=== PATIENT | female | born 1940 | race Caucasian/White ===

== ENCOUNTER 2018-07-16 19:21 | Observation (INO) ==
[2018-07-16] MEDS ORDERED: DILTIAZEM HCL 5 MG/ML VIAL IV ONE (19:32)
[2018-07-16 19:48] LABS: Hematocrit 39.4 % (37.0-47.0); Hemoglobin 13.3 gm/dL (12.5-16.0); Mean Cell Volume 92.7 fl (78-100); Mean Corpuscular Hemoglobin 31.3 pg (27-31); Mean Corpuscular Hgb Conc 33.8 g/dl (32-36); Mean Platelet Volume 9.9 fl (8-12.5); Neutrophil # 5.3 K/mm3 (1.3-6.0); Neutrophil % 63.3 % (42-75.0); Platelet Count 179 K/mm3 (150-450); Red Blood Count 4.25 M/mm3 (4.2-5.4); Red Cell Distribution Width 12.8 % (11.5-14.0); White Blood Count 8.4 K/mm3 (4.0-10.5)
--- NOTE | 2018-07-16 19:49 | ERNOTE ---
Dizziness ER Record Date of Service: 07/16/18 Presenting Symptoms: dizziness, weakness Time Seen by Provider: 07/16/18 19:29 Source: patient Exam Limitations: no limitations Immunizations: IMMUNIZATION HX Immunizations Up to Date Yes History of Influenza Vaccine Yes Allergies/Adverse Reactions: Allergies Allergy/AdvReac Type Severity Reaction Status Date / Time methylprednisolone Allergy Intermediate SWELLED UP Verified 07/16/18 19:28 ALL OVER, GAINED 20 LBS SUDDENLY Sulfa (Sulfonamide AdvReac Mild RASH Verified 07/16/18 19:28 Antibiotics) Home Medications: HOME MEDICATIONS Aspirin [Aspirin Enteric Coated] 81 mg PO DAILY 07/22/13 [Last Taken Unknown] Calcium Carbonate [Oyster Shell Calcium] 500 mg PO DAILY 07/22/13 [Last Taken Unknown] Multivitamins [Multivitamin Kacie] 1 cap PO DAILY 07/22/13 [Last Taken Unknown] Nitroglycerin [Nitrostat] 0.4 mg SL PRN PRN 07/22/13 [Last Taken Unknown] [place]-3 Fatty Acids/Fish Oil [Fish Oil 1,000 mg Softgel] 1 ea PO DAILY 07/22/13 [Last Taken Unknown] Ranitidine HCl 150 mg PO BID PRN 07/22/13 [Last Taken Unknown] atorvastatin 20 mg tablet 20 mg PO DAILY #90 tab 04/12/18 [Last Taken Unknown] isosorbide mononitrate ER 30 mg tablet,extended release 24 hr 30 mg PO BID #180 tab 04/12/18 [Last Taken Unknown] metoprolol succinate ER 100 mg tablet,extended release 24 hr 100 mg PO DAILY #90 tab 04/12/18 [Last Taken Unknown] ciprofloxacin 500 mg tablet 500 mg PO BID #20 tab 06/29/18 [Last Taken Unknown] - History of Present Illness Narrative: patient present with findings at home of difficulty walking and slurred speech, symptoms have resolved upon arrival Timing and Duration: sudden onset, better Review of Systems - Review of Systems Constitutional: Present: See HPI, weakness, fatigue, malaise EYE: Present: no symptoms reported ENT: Present: no symptoms reported Respiratory: Present: no symptoms reported Cardiology: Present: palpitations Gastrointestinal/Abdominal: Present: no symptoms reported Genitourinary: Present: no symptoms reported Musculoskeletal: Present: no symptoms reported Skin: Present: no symptoms reported Neurological: Present: headache, dizziness/light-headedness, weakness Endocrine: Present: no symptoms reported Hematologic/Lymphatic: Present: no symptoms reported Psych: Present: no symptoms reported All Other Systems: All systems neg except as marked Medical History (Last Reviewed 07/16/18 @ 19:28 by Dinah Bo RN) CAD (coronary artery disease) Onset Date: ~2011 Hyperlipidemia Onset Date: Unknown Hypertension Onset Date: Unknown Dupuytren contracture Onset Date: Unknown both hands History of myocardial infarction Onset Date: Unknown Surgical History: Surgical History (Last Reviewed 07/16/18 @ 19:28 by Dinah Bo RN) History of angioplasty Onset Date: ~1997 History of cataract surgery Onset Date: ~2013 bilateral History of colonoscopy Onset Date: ~2004 History of laparoscopic cholecystectomy Onset Date: ~2009 Hx of appendectomy Onset Date: ~2009 Family History: Family History (Last Reviewed 07/16/18 @ 19:28 by Dinah Bo RN) Father Heart disease Mother Heart disease Social History: Preferred Language Bhutanese Do you have any mandaen or No cultural preference? Smoking Status Former smoker Alcohol Use none Drug Use none (Last Updated 06/29/18 @ 15:31 by La Nena Mantilla MD) No Social History Section defined Physical Exam - Physical Exam General Appearance: Present: mild distress, anxious Head Exam: Present: normal inspection, no evidence of injury Eye Exam: Normal inspection: bilateral, PERRL: bilateral, EOMI: bilateral Progress - Vital Signs Patient's Vital Signs:: I have reviewed the patient's vital signs. Vital Signs: Vital Signs 07/16/18 19:25 07/16/18 19:35 Temperature 36.7 C Pulse Rate 152 H 134 H Respiratory Rate 25 H Blood Pressure 197/113 H 197/113 H O2 Sat by Pulse Oximetry 95 - EKG EKG #1 EKG: atrial fibrillation - Progress/Reassessment Chief Complaint: Dizziness - Transfer of Care Physician Sign Out: Thor Nava Receiving Physician: Chato Collins Expected Disposition: Admit Plan - Plan Plan: to admit Departure Clinical Impression: TIA (transient ischemic attack), Atrial fibrillation - Departure Disposition: Still a patient Condition: Serious Referrals: La Nena Mantilla MD [Primary Care Provider] -
[2018-07-16 20:04] LABS: Albumin * 3.5 gm/dl (3.4-5.0); Anion Gap 16.8 mmol/L (6.8-13.8); BUN/Creatinine Ratio 16.8 (9.0-21.6); Bilirubin, Total 0.4 mg/dL (0.0-1.1); Calcium * 8.9 mg/dL (7.9-10.9); Potassium 3.8 mmol/L (3.4-4.6); Total Protein 6.8 gm/dL (6.2-8.2)
[2018-07-16 20:04] LABS: Urine Bilirubin Negative (NEGATIVE); Urine Ketone Negative (NEGATIVE); Urine Nitrite Negative (NEGATIVE); Urine Protein 15 mg/dL (NEGATIVE); Urine Specific Gravity <=1.005 SP.GR. (1.005-1.010); Urine Urobilinogen Normal (NORMAL)
[2018-07-16 20:13] LABS: Urine Blood 5 /ul (NEGATIVE); Urine Color Yellow
[2018-07-16 20:14] LABS: Urine Appearance Clear (CLEAR); Urine Bacteria None Seen; Urine RBC 0-5 /hpf (0-5); Urine WBC 0-5 /hpf (0-5)
[2018-07-16] MEDS ORDERED: DILTIAZEM HCL 125 MG in DEXTROSE 5 % IN WATER 100 ML IV PRN ×2 (20:26)
[2018-07-16 20:27] LABS: Cocaine Ur Negative (NEGATIVE); Urine Barbiturate Negative (NEGATIVE); Urine Benzodiazepines Negative (NEGATIVE); Urine Opiates Negative (NEGATIVE); Urine PCP Negative (NEGATIVE); Urine THC Negative (NEGATIVE)
--- NOTE | 2018-07-16 20:42 | ERNOTE ---
Chest Pain/Cardiac HPI Chief Complaint: Dizziness Time Seen by Provider: 07/16/18 19:29 Source: patient Exam Limitations: no limitations Immunizations: IMMUNIZATION HX Immunizations Up to Date Yes History of Influenza Vaccine Yes Allergies/Adverse Reactions: Allergies methylprednisolone Allergy (Intermediate, Verified 07/16/18 19:28) SWELLED UP ALL OVER, GAINED 20 LBS SUDDENLY Sulfa (Sulfonamide Antibiotics) Adverse Reaction (Mild, Verified 07/16/18 19:28) RASH Home Medications: HOME MEDICATIONS Aspirin [Aspirin Enteric Coated] 81 mg PO DAILY 07/22/13 [Last Taken Unknown] Calcium Carbonate [Oyster Shell Calcium] 500 mg PO DAILY 07/22/13 [Last Taken Unknown] Multivitamins [Multivitamin Kacie] 1 cap PO DAILY 07/22/13 [Last Taken Unknown] Nitroglycerin [Nitrostat] 0.4 mg SL PRN PRN 07/22/13 [Last Taken Unknown] [place]-3 Fatty Acids/Fish Oil [Fish Oil 1,000 mg Softgel] 1 ea PO DAILY 07/22/13 [Last Taken Unknown] Ranitidine HCl 150 mg PO BID PRN 07/22/13 [Last Taken Unknown] atorvastatin 20 mg tablet 20 mg PO DAILY #90 tab 04/12/18 [Last Taken Unknown] isosorbide mononitrate ER 30 mg tablet,extended release 24 hr 30 mg PO BID #180 tab 04/12/18 [Last Taken Unknown] metoprolol succinate ER 100 mg tablet,extended release 24 hr 100 mg PO DAILY #90 tab 04/12/18 [Last Taken Unknown] Lisinopril/Hydrochlorothiazide [Lisinopril-Hctz 20-12.5 mg Tab] 1 ea PO DAILY 07/16/18 [Last Taken Unknown] Narrative: Pt presented with dizziness and difficulty walking and speaking at home that resolved prior to arrival. She was found to be in A-fib with RVR. She was seen initially by Dr. Nava who gave her cardizem IV and her rate came down around 110-120, but blood pressure remained elevated in the 172/107 range. I assumed care of the patient at 20:00. Timing: resolved prior to arrival Severity/Quality: moderate Activities at Onset: rest Review of Systems - Review of Systems Constitutional: Present: recent illness - UTI 2 weeks ago. Absent: fever, chills EYE: Absent: vision changes ENT: Absent: nose congestion, nasal drainage Respiratory: Absent: shortness of breath, cough Cardiology: Present: palpitations. Absent: chest pain Gastrointestinal/Abdominal: Absent: nausea, vomiting Genitourinary: Absent: frequency, dysuria Musculoskeletal: Absent: back pain, muscle pain Skin: Absent: rash Neurological: Present: See HPI, dizziness/light-headedness, weakness, pre- existing deficit - difficulty finding words Endocrine: Absent: excessive sweating Hematologic/Lymphatic: Absent: easy bruising, easy bleeding Medical History (Last Reviewed 07/16/18 @ 21:21 by Chato Collins DO) CAD (coronary artery disease) Onset Date: ~2011 Hyperlipidemia Onset Date: Unknown Hypertension Onset Date: Unknown Dupuytren contracture Onset Date: Unknown both hands History of myocardial infarction Onset Date: Unknown Surgical History: Surgical History (Last Reviewed 07/16/18 @ 21:21 by Chato Collins DO) History of angioplasty Onset Date: ~1997 History of cataract surgery Onset Date: ~2013 bilateral History of colonoscopy Onset Date: ~2004 History of laparoscopic cholecystectomy Onset Date: ~2009 Hx of appendectomy Onset Date: ~2009 Family History: Family History (Last Reviewed 07/16/18 @ 21:21 by Chato Collins DO) Father Heart disease Mother Heart disease Social History: Preferred Language Mozambican Do you have any judaism or No cultural preference? Smoking Status Former smoker Alcohol Use none Drug Use none (Last Updated 06/29/18 @ 15:31 by La Nena Mantilla MD) No Social History Section defined Physical Exam - Physical Exam General Appearance: Present: wd/wn, alert, no apparent distress Head Exam: Present: normal inspection, no evidence of injury Eye Exam: Normal inspection: bilateral, PERRL: bilateral, EOMI: bilateral Ears, Nose, Throat: Present: normal ENT inspection Neck: Present: normal inspection, nontender, supple Respiratory: Present: no respiratory distress, no accessory muscle use, chest nontender, lungs clear Cardiovascular/Chest: Present: no murmur, tachycardia, irregularly irregular Gastrointestinal/Abdominal: Present: normal bowel sounds, nontender, nondistended, soft Extremity Exam: Present: normal inspection, normal range of motion, no edema Neurological Exam: Present: alert, oriented, normal mood/affect, no motor/senso ry deficits, stockfeed miller II-XII nml as tested Skin Exam: Present: normal color, warm/dry Lymphatic Exam: Present: no adenopathy Progress - Results and Orders Patient's Lab Results:: I have reviewed the patient's lab results. Results and Orders: Laboratory Tests 07/16/18 07/16/18 07/16/18 19:44 19:44 19:49 WBC 8.4 Hgb 13.3 Hct 39.4 Plt Count 179 Sodium 141 Potassium 3.8 Chloride 102 BUN 20 Creatinine 1.19 Random Glucose 101 Calcium 8.9 Total Bilirubin 0.4 AST 27 ALT 41 Alkaline Phosphatase 102 Troponin I Less than 0.017 Total Protein 6.8 Albumin 3.5 Urine Color Urine Appearance Urine pH Ur Specific [place] Urine Protein Urine Glucose (UA) Urine Ketones Urine Blood Urine Nitrate Urine Bilirubin Prot Sulfosalicylic Acd Urine Urobilinogen Ur Leukocyte Esterase Urine RBC Urine WBC Ur Epithelial Cells Urine Bacteria Urine Culture Comments Urine Opiates Screen Barbiturate Screen Ur Phencyclidine Scrn Urine Amphetamine U Benzodiazepines Scrn Urine Cocaine Screen Urine Marijuana (THC) 07/16/18 07/16/18 19:56 19:56 WBC Hgb Hct Plt Count Sodium Potassium Chloride BUN Creatinine Random Glucose Calcium Total Bilirubin AST ALT Alkaline Phosphatase Troponin I Total Protein Albumin Urine Color Yellow Urine Appearance Clear Urine pH 7.0 Ur Specific [place] <=1.005 Urine Protein 15 H Urine Glucose (UA) Negative Urine Ketones Negative Urine Blood 5 H Urine Nitrate Negative Urine Bilirubin Negative Prot Sulfosalicylic Acd Negative Urine Urobilinogen Normal Ur Leukocyte Esterase Negative Urine RBC 0-5 Urine WBC 0-5 Ur Epithelial Cells 0-5 Urine Bacteria None seen Urine Culture Comments No culture indicated Urine Opiates Screen Negative Barbiturate Screen Negative Ur Phencyclidine Scrn Negative Urine Amphetamine Negative U Benzodiazepines Scrn Negative Urine Cocaine Screen Negative Urine Marijuana (THC) Negative - Vital Signs Patient's Vital Signs:: I have reviewed the patient's vital signs. Vital Signs: Vital Signs 07/16/18 19:25 07/16/18 19:35 Temperature 36.7 C Pulse Rate 152 H 134 H Respiratory Rate 25 H Blood Pressure 197/113 H 197/113 H O2 Sat by Pulse Oximetry 95 - EKG EKG #1 EKG: atrial fibrillation - with RVR at 150, RBBB - incomplete, nonspecific ST T wave changes EKG read: Interp. by me - X-Ray X-Ray #1 X-Ray: chest Interpretation: Interp. by me X-ray Comments: increased vascularity throughout the lung ruano - CT/Ultrasound CT/Ultrasound Narrative: CT head without contrast: No acute intracranial abnormalities - Progress/Reassessment Chief Complaint: Dizziness Progress:: Unchanged Progress Note-Subjective: 07/16/18 21:[address] Garrido and he agrees to accept the patient for observation admission Departure Clinical Impression: TIA (transient ischemic attack) Atrial fibrillation Qualifiers: Atrial fibrillation type: paroxysmal Qualified Code(s): I48.0 - Paroxysmal atrial fibrillation - Departure Disposition: Still a patient Condition: Serious
[2018-07-16] MEDS ORDERED: ENOXAPARIN SODIUM 80 MG/0.8 ML DISP.SYRIN SC ONE (21:19)
[2018-07-16] MEDS ORDERED: ACETAMINOPHEN 500 MG TABLET PO PRN (23:23)
--- NOTE | 2018-07-16 23:23 | HP ---
Chief Complaint - Chief Complaint Date of Service: 07/16/18 Time of Service: 23:22 Chief Complaint: Altered mental status History of Present Illness: Scarlet is a 78 yo female who became confused, had dysarthria, and per had possible facial droop. Symptoms began to improve prior to to arrival in ER. There was no noticeable facial drop, but she did have some confusion and speech finding a little different than usual. In the ER she was found to have atrial fibrillation with RVR and placed on diltiazem drip to control heart rate. She denies any recent change in health, but does report a little more stress lately. She currently feels she is back to her usual although her reports she is having a little more difficulty than usual coming up with the words to say. Medical History (Last Reviewed 07/23/18 @ 09:38 by Julia Angelo) CAD (coronary artery disease) Onset Date: ~2011 Hyperlipidemia Onset Date: Unknown Hypertension Onset Date: Unknown Dupuytren contracture Onset Date: Unknown both hands History of myocardial infarction Onset Date: Unknown Surgical History: Surgical History (Last Reviewed 07/23/18 @ 09:38 by Julia Angelo) History of angioplasty Onset Date: ~1997 History of cataract surgery Onset Date: ~2013 bilateral History of colonoscopy Onset Date: ~2004 History of laparoscopic cholecystectomy Onset Date: ~2009 Hx of appendectomy Onset Date: ~2009 Family History: Family History (Last Reviewed 07/23/18 @ 09:38 by Julia Angelo) Father Heart disease Mother Heart disease Social History: Patient Lives/Resources Home Utilized Occupation Retired Preferred Language American Do you have any jain or Yes: Hinduism cultural preference? Smoking Status Former smoker Have you smoked in the past 12 No months Do you dip or chew tobacco No Alcohol Use none Drug Use none (Last Updated 06/29/18 @ 15:31 by La Nena Mantilla MD) No Social History Section defined Review Of Systems (GEN) - Review of Systems Generalized/Overall Review: Absent: Weakness, Chills, Fever EENTM: Present: No Symptoms Reported Respiratory: Absent: Cough, Shortness of Breath Cardiac: Absent: Chest Pain, Edema, Palpitations, Syncope Abdominal: Absent: Nausea, Vomiting Genitourinary: Present: No Symptoms Reported Musculoskeletal: Present: No Symptoms Reported Neurological: Absent: Headache, Tremors, Weakness Skin: Present: No Symptoms Reported Immunizations: IMMUNIZATION HX Immunizations Up to Date Yes History of Influenza Vaccine Yes Allergies/Adverse Reactions: Allergies Allergy/AdvReac Type Severity Reaction Status Date / Time methylprednisolone Allergy Intermediate SWELLED UP Verified 07/23/18 09:31 ALL OVER, GAINED 20 LBS SUDDENLY Sulfa (Sulfonamide AdvReac Mild RASH Verified 07/23/18 09:31 Antibiotics) Home Medications: HOME MEDICATIONS Aspirin [Aspirin Enteric Coated] 81 mg PO DAILY 07/22/13 [Last Taken Unknown] Calcium Carbonate [Oyster Shell Calcium] 500 mg PO DAILY 07/22/13 [Last Taken Unknown] Multivitamins [Multivitamin Kacie] 1 cap PO DAILY 07/22/13 [Last Taken Unknown] Nitroglycerin [Nitrostat] 0.4 mg SL PRN PRN 07/22/13 [Last Taken Unknown] [place]-3 Fatty Acids/Fish Oil [Fish Oil 1,000 mg Softgel] 1 ea PO DAILY 07/22/13 [Last Taken Unknown] Ranitidine HCl 150 mg PO BID PRN 07/22/13 [Last Taken Unknown] atorvastatin 20 mg tablet 20 mg PO DAILY #90 tab 04/12/18 [Last Taken Unknown] isosorbide mononitrate ER 30 mg tablet,extended release 24 hr 30 mg PO BID #180 tab 04/12/18 [Last Taken Unknown] Lisinopril/Hydrochlorothiazide [Lisinopril-Hctz 20-12.5 mg Tab] 1 ea PO DAILY 07/16/18 [Last Taken Unknown] Acetaminophen [Tylenol] 1,000 mg PO Q6H PRN tab 07/17/18 [Last Taken Unknown] Apixaban [Eliquis] 5 mg PO BID #60 tab 07/17/18 [Last Taken Unknown] Levothyroxine Sodium [Levoxyl] 100 mcg PO DAILY #30 tab 07/17/18 [Last Taken Unknown] Metoprolol Succinate [Toprol Xl] 150 mg PO DAILY #45 tab.er.24h 07/17/18 [Last Taken Unknown] Exam - Exam Vital Signs: Vital Signs - Last Taken Temp 36.7 C 07/16/18 19:25 Pulse 90 07/16/18 22:25 Resp 16 07/16/18 22:25 BP 154/90 H 07/16/18 22:25 Pulse Ox 95 07/16/18 22:25 Constitutional: Present: Alert, Oriented x3, Cooperative ENT Exam: Present: hearing grossly normal Eye Exam: bilateral eye: normal inspection Respiratory: Present: lungs clear, normal breath sounds Cardiovascular/Chest: Present: tachycardia, irregularly irregular Peripheral Pulses: radial (R): 2+, radial (L): 2+ Abdomen: Present: Normal bowel sounds, soft, nontender, nondistended Extremity: Present: normal inspection, normal capillary refill Skin Exam: Present: normal color, warm/dry, no cyanosis Appearance: Present: appropriate appearance, appropriate insight Eye contact: Present: cooperative, good eye contact, avoids eye contact, other - word finding slowed Thoughts: Present: normal thought pattern, no apparent hallucination Diagnostic Studies: Abnormal Lab Results 07/16/18 07/16/18 07/16/18 Range/Units 19:44 19:44 19:56 MCH 31.3 H (27-31) pg Monocytes % 9.6 H (0.0-9) % Anion Gap 16.8 H (6.8-13.8) mmol/L Est GFR (Non-Af Amer) 47 L D (60-130) mL/min Urine Protein 15 H (NEGATIVE) mg/dL Urine Blood 5 H (NEGATIVE) /ul Laboratory Results WBC 8.4 K/mm3 (4.0-10.5) 07/16/18 19:44 RBC 4.25 M/mm3 (4.2-5.4) 07/16/18 19:44 Hgb 13.3 gm/dL (12.5-16.0) 07/16/18 19:44 Hct 39.4 % (37.0-47.0) 07/16/18 19:44 MCV 92.7 fl (78-100) 07/16/18 19:44 MCH 31.3 pg (27-31) H 07/16/18 19:44 MCHC 33.8 g/dl (32-36) 07/16/18 19:44 RDW 12.8 % (11.5-14.0) 07/16/18 19:44 Plt Count 179 K/mm3 (150-450) 07/16/18 19:44 MPV 9.9 fl (8-12.5) 07/16/18 19:44 Immature Gran % (Auto) 0.40 % (0.001-0.429) 07/16/18 19:44 Immature Gran # (Auto) 0.03 K/mm3 (0.000-0.0310) 07/16/18 19:44 Neutrophils % 63.3 % (42-75.0) 07/16/18 19:44 Lymphocytes % 24.5 % (20-51) 07/16/18 19:44 Monocytes % 9.6 % (0.0-9) H 07/16/18 19:44 Eosinophils % 1.8 % (0.0-3.0) 07/16/18 19:44 Basophils % 0.4 % (0.0-1.0) 07/16/18 19:44 Nucleated RBC % 0.0 k/mm3 (0-1) 07/16/18 19:44 Neutrophils # 5.3 K/mm3 (1.3-6.0) 07/16/18 19:44 Lymphocytes # 2.05 k/mm3 (1.5-3.5) 07/16/18 19:44 Monocytes # 0.8 k/mm3 (0.0-1.0) 07/16/18 19:44 Eosinophils # 0.2 k/mm3 (0.0-0.7) 07/16/18 19:44 Absolute Basophils 0.0 k/mm3 (0.0-0.1) 07/16/18 19:44 Sodium 141 mmol/L (132-142) 07/16/18 19:44 Plasma Sodium 141 mmol/L (130-142) 07/16/18 19:44 Potassium 3.8 mmol/L (3.4-4.6) 07/16/18 19:44 Chloride 102 mmol/L (97-106) 07/16/18 19:44 Carbon Dioxide 26.0 mmol/L (24-32.6) 07/16/18 19:44 Anion Gap 16.8 mmol/L (6.8-13.8) H 07/16/18 19:44 BUN 20 mg/dL (3-23) 07/16/18 19:44 Creatinine 1.19 mg/dL (0.4-1.4) 07/16/18 19:44 Est GFR (Non-Af Amer) 47 mL/min (60-130) L D 07/16/18 19:44 BUN/Creatinine Ratio 16.8 (9.0-21.6) 07/16/18 19:44 Random Glucose 101 mg/dL (70-110) 07/16/18 19:44 Calcium 8.9 mg/dL (7.9-10.9) 07/16/18 19:44 Calcium Adj for Albumin 9.0 mg/dL (8.4-10.2) 07/16/18 19:44 Total Bilirubin 0.4 mg/dL (0.0-1.1) 07/16/18 19:44 AST 27 U/L (0-48) 07/16/18 19:44 ALT 41 U/L (19-67) 07/16/18 19:44 Alkaline Phosphatase 102 U/L (50-170) 07/16/18 19:44 Troponin I Less than 0.017 ng/mL (0.00-0.10) 07/16/18 19:49 Total Protein 6.8 gm/dL (6.2-8.2) 07/16/18 19:44 Albumin 3.5 gm/dl (3.4-5.0) 07/16/18 19:44 Urine Color Yellow 07/16/18 19:56 Urine Appearance Clear (CLEAR) 07/16/18 19:56 Urine pH 7.0 pH (5.0-7.0) 07/16/18 19:56 Ur Specific [place] <=1.005 SP.GR. (1.005-1.010) 07/16/18 19:56 Urine Protein 15 mg/dL (NEGATIVE) H 07/16/18 19:56 Urine Glucose (UA) Negative mg/dL (NEGATIVE) 07/16/18 19:56 Urine Ketones Negative mg/dL (NEGATIVE) 07/16/18 19:56 Urine Blood 5 /ul (NEGATIVE) H 07/16/18 19:56 Urine Nitrate Negative (NEGATIVE) 07/16/18 19:56 Urine Bilirubin Negative mg/dl (NEGATIVE) 07/16/18 19:56 Prot Sulfosalicylic Acd Negative mg/dL (0) 07/16/18 19:56 Urine Urobilinogen Normal EU/dl (NORMAL) 07/16/18 19:56 Ur Leukocyte Esterase Negative /ul (NEGATIVE) 07/16/18 19:56 Urine RBC 0-5 /hpf (0-5) 07/16/18 19:56 Urine WBC 0-5 /hpf (0-5) 07/16/18 19:56 Ur Epithelial Cells 0-5 /hpf (0-5) 07/16/18 19:56 Urine Bacteria None seen (NONE) 07/16/18 19:56 Urine Culture Comments No culture indicated 07/16/18 19:56 Urine Opiates Screen Negative (NEGATIVE) 03 19:56 Barbiturate Screen Negative (NEGATIVE) 03 19:56 Ur Phencyclidine Scrn Negative (NEGATIVE) 07/16/18 19:56 Urine Amphetamine Negative (NEGATIVE) 07/16/18 19:56 U Benzodiazepines Scrn Negative (NEGATIVE) 03 19:56 Urine Cocaine Screen Negative (NEGATIVE) 07/16/18 19:56 Urine Marijuana (THC) Negative (NEGATIVE) 07/16/18 19:56 Assessment/Plan - Narrative Narrative: Scarlet is a 78 yo female with new onset atrial fibrillation with rapid ventricular response. Rate is controlled now with diltiazem IV, will titrate off of this as able to keep heart rate below 115. Added on thyroid labs which shows hypothyroidism. Will start weight based thyroid dose. Discussed medical vs electrical cardioversion. She declines the consideration of electrical cardioversion. I agree with this as since her heart rate has improved she does not notice the atrial fibrillation and it may have been present for longer than 48hours. Discussed anticoagulation, she will consider this and will plan to discharge to home tomorrow on oral anticoagulation. Will admit to observation for rate control and if stable will plan to discharge to home tomorrow. Currently neurological findings appear to be at or near baseline. - Assessment/Plan (1) New onset atrial fibrillation Problem: Acute (2) Atrial fibrillation with rapid ventricular response Problem: Acute (3) Hypothyroidism, unspecified Problem: Acute
[2018-07-16] MEDS ORDERED: LEVOTHYROXINE SODIUM 100 MCG TABLET PO ONE (23:24)
[2018-07-16] MEDS ORDERED: FAMOTIDINE 20 MG TABLET PO PRN (23:30)
[2018-07-17] MEDS ORDERED: METOPROLOL SUCCINATE 100 MG, METOPROLOL SUCCINATE 50 MG PO SCH ×2 (09:00)
[2018-07-17] MEDS ORDERED: LISINOPRIL 20 MG TABLET PO SCH (09:00)
[2018-07-17] MEDS ORDERED: ASPIRIN 81 MG TABLET.DR PO SCH (09:00)
[2018-07-17] MEDS ORDERED: MULTIVITAMINS 1 CAP CAPSULE PO SCH (09:00)
[2018-07-17] MEDS ORDERED: METOPROLOL SUCCINATE 100 MG TABLET.SA PO SCH ×2 (09:00)
[2018-07-17] MEDS ORDERED: ROSUVASTATIN CALCIUM 10 MG TABLET PO SCH ×3 (09:00→21:00)
[2018-07-17] MEDS ORDERED: HYDROCHLOROTHIAZIDE 12.5 MG CAPSULE PO SCH (09:00)
[2018-07-17] MEDS ORDERED: ISOSORBIDE MONONITRATE 30 MG TAB.SR.24H PO SCH ×2 (09:00→21:00)
[2018-07-17] MEDS ORDERED: ACETAMINOPHEN 500 MG TABLET PO PRN (09:06)
[2018-07-17] MEDS ORDERED: FAMOTIDINE 20 MG TABLET PO PRN (09:06)
[2018-07-17] MEDS ORDERED: APIXABAN 5 MG TABLET PO SCH (09:15)
--- NOTE | 2018-07-17 15:05 | DS ---
(1) New onset atrial fibrillation Problem: Acute (2) Atrial fibrillation with rapid ventricular response Problem: Acute (3) Hypothyroidism, unspecified Problem: Acute Description of Stay: Scarlet is a 78 yo female admitted for new onset atrial fibrillation with rapid ventricular response. She was given IV diltiazem in the ER with a heart rate of 140, this helped and she was placed on a diltiazem drip and admitted to the SC[facility]. Gradually her diltiazem drip was able to be titrated down and off with an increase of her metoprolol from 100mg daily to 150mg daily. Evaluation found a TSH of 8 and she will be started on levothyroxine at 100mcg daily. Although her rate is controlled she remains in atrial fibrillation but is unaware of this rhythm. I discussed with her electrical cardioversion but she does not want this. She is currently asymptomatic and her rate is controlled. Will continue metoprolol at 150mg daily, will add eliquis at 5mg BID for stroke prevention with atrial fibrillation, and will start levothyroxine at 100mcg daily. She will need to follow up with her rn diabetes Dr. Logan and PCP with the plan to recheck TSH in 6 weeks. Procedures Performed: none Results and Findings: Lab Pending Results 07/16/18 19:44: WBC 8.4, RBC 4.25, Hgb 13.3, Hct 39.4, MCV 92.7, MCH 31.3 H, MCHC 33.8, RDW 12.8, Plt Count 179, MPV 9.9, Immature Gran % (Auto) 0.40, Immature Gran # (Auto) 0.03, Neutrophils % 63.3, Lymphocytes % 24.5, Monocytes % 9.6 H, Eosinophils % 1.8, Basophils % 0.4, Nucleated RBC % 0.0, Neutrophils # 5.3, Lymphocytes # 2.05, Monocytes # 0.8, Eosinophils # 0.2, Absolute Basophils 0.0 07/16/18 19:44: Sodium 141, Plasma Sodium 141, Potassium 3.8, Chloride 102, Carbon Dioxide 26.0, Anion Gap 16.8 H, BUN 20, Creatinine 1.19, Est GFR (Non-Af Amer) 47 L D, BUN/Creatinine Ratio 16.8, Random Glucose 101, Calcium 8.9, Calcium Adj for Albumin 9.0, Total Bilirubin 0.4, AST 27, ALT 41, Alkaline Phosphatase 102, Total Protein 6.8, Albumin 3.5 07/16/18 19:49: Troponin I Less than 0.017 07/16/18 19:56: Urine Color Yellow, Urine Appearance Clear, Urine pH 7.0, Ur Specific [place] <=1.005, Urine Protein 15 H, Urine Glucose (UA) Negative, Urine Ketones Negative, Urine Blood 5 H, Urine Nitrate Negative, Urine Bilirubin Negative, Prot Sulfosalicylic Acd Negative, Urine Urobilinogen Normal, Ur Leukocyte Esterase Negative, Urine RBC 0-5, Urine WBC 0-5, Ur Epithelial Cells 0-5, Urine Bacteria None seen, Urine Culture Comments No culture indicated 07/16/18 19:56: Urine Opiates Screen Negative, Barbiturate Screen Negative, Ur Phencyclidine Scrn Negative, Urine Amphetamine Negative, U Benzodiazepines Scrn Negative, Urine Cocaine Screen Negative, Urine Marijuana (THC) Negative 07/16/18 22:54: TSH 8.146 H 07/17/18 01:50: Troponin I 0.017 Discharge Location: Home Disposition: Home self-care Condition: Good Discharge Activity: Activity as tolerated Discharge Diet: Low salt Referrals: La Nena Matnilla MD [Primary Care Provider] - One Week Cassidy Loagn MD [Associate] - Problem Oriented Discharge Instructions to Patient/Family: Atrial Fibrillation, [id number] Prescriptions (Any new or edited meds): Apixaban [Eliquis] 5 mg PO BID #60 tab Levothyroxine Sodium [Levoxyl] 100 mcg PO DAILY #30 tab Metoprolol Succinate [Toprol Xl] 150 mg PO DAILY #45 tab.er.24h Complete Home Medications List: Complete Home Medication List: Aspirin [Aspirin Enteric Coated] 81 mg PO DAILY 07/22/13 Calcium Carbonate [Oyster Shell Calcium] 500 mg PO DAILY 07/22/13 Multivitamins [Multivitamin Kacie] 1 cap PO DAILY 07/22/13 Nitroglycerin [Nitrostat] 0.4 mg SL PRN PRN 07/22/13 [place]-3 Fatty Acids/Fish Oil [Fish Oil 1,000 mg Softgel] 1 ea PO DAILY 07/22/13 Ranitidine HCl 150 mg PO BID PRN 07/22/13 atorvastatin 20 mg tablet 20 mg PO DAILY #90 tab 04/12/18 isosorbide mononitrate ER 30 mg tablet,extended release 24 hr 30 mg PO BID #180 tab 04/12/18 Lisinopril/Hydrochlorothiazide [Lisinopril-Hctz 20-12.5 mg Tab] 1 ea PO DAILY 07/16/18 Acetaminophen [Tylenol] 1,000 mg PO Q6H PRN tab 07/17/18 Apixaban [Eliquis] 5 mg PO BID #60 tab 07/17/18 Levothyroxine Sodium [Levoxyl] 100 mcg PO DAILY #30 tab 07/17/18 Metoprolol Succinate [Toprol Xl] 150 mg PO DAILY #45 tab.er.24h 07/17/18
[2018-07-17 15:39] VITALS: BP 137/75
[2018-07-18] MEDS ORDERED: ASPIRIN 81 MG TABLET.DR PO SCH (09:00)
[2018-07-18] MEDS ORDERED: LISINOPRIL 20 MG TABLET PO SCH (09:00)
[2018-07-18] MEDS ORDERED: MULTIVITAMINS 1 CAP CAPSULE PO SCH (09:00)
[2018-07-18] MEDS ORDERED: HYDROCHLOROTHIAZIDE 12.5 MG CAPSULE PO SCH (09:00)
== END 2018-07-17 15:45 | disposition home or self-care (01) ==
LOC: ER 19:21 → SCU 19:21
PROVIDERS: ADMIT Family Medicine; ATTEND Family Medicine
CPT/HCPCS: 36415; 70450; 71020; 71046; 80053; 80307; 81001; 84443; 84484; 85025; 93005; 96365; 96366; 99285; G0378

== ENCOUNTER 2018-08-09 05:26 | Inpatient (IN) ==
[2018-08-09] MEDS ORDERED: DILTIAZEM HCL 5 MG/ML VIAL IV ONE (05:43)
[2018-08-09] MEDS ORDERED: ALBUTEROL SULFATE 2.5 MG/0.5 ML VIAL.NEB IH ONE (06:05)
[2018-08-09 06:07] LABS: Hematocrit 45.8 % (37.0-47.0); Hemoglobin 14.7 gm/dL (12.5-16.0); Mean Cell Volume 95.4 fl (78-100); Mean Corpuscular Hemoglobin 30.6 pg (27-31); Mean Corpuscular Hgb Conc 32.1 g/dl (32-36); Mean Platelet Volume 10.6 fl (8-12.5); Neutrophil # 7.9 K/mm3 (1.3-6.0); Neutrophil % 79.1 % (42-75.0); Platelet Count 212 K/mm3 (150-450); Red Cell Distribution Width 12.5 % (11.5-14.0); White Blood Count 9.9 K/mm3 (4.0-10.5)
[2018-08-09 06:35] LABS: ALT 153 U/L (19-67); AST 101 U/L (0-48); Albumin * 3.3 gm/dl (3.4-5.0); Alkaline Phosphatase * 110 U/L (50-170); Anion Gap 11.7 mmol/L (6.8-13.8); BNP * 10016 pg/mL (5-550); BUN/Creatinine Ratio 19.5 (9.0-21.6); Bilirubin, Total 0.8 mg/dL (0.0-1.1); Blood Urea Nitrogen 23 mg/dL (3-23); Calcium * 8.8 mg/dL (7.9-10.9); Carbon Dioxide 28.2 mmol/L (24-32.6); Chloride 104 mmol/L (97-106); Glucose * 216 mg/dL (70-110); Potassium 3.9 mmol/L (3.4-4.6); Sodium 140 mmol/L (132-142); Total Protein 6.3 gm/dL (6.2-8.2); Troponin I Less than 0.017 ng/mL (0.00-0.10)
[2018-08-09] MEDS ORDERED: FUROSEMIDE 10 MG/ML VIAL IV ONE (06:55)
--- NOTE | 2018-08-09 07:21 | ERNOTE ---
Dyspnea - Date Date of Service: 08/09/18 - General Presenting Symptoms: shortness of breath, difficulty of breathing, wheezing Time Seen by Provider: 08/09/18 05:35 Source: patient, family Exam Limitations: no limitations - Immun/Allergies/Home Medications Immunizations: IMMUNIZATION HX Immunizations Up to Date Yes History of Influenza Vaccine Yes Hx Pneumococcal Vaccination Yes Allergies/Adverse Reactions: Allergies methylprednisolone Allergy (Intermediate, Verified 08/09/18 05:49) SWELLED UP ALL OVER, GAINED 20 LBS SUDDENLY Sulfa (Sulfonamide Antibiotics) Adverse Reaction (Mild, Verified 08/09/18 05:49) RASH Home Medications: HOME MEDICATIONS RX: Aspirin [Aspirin Enteric Coated] 81 mg PO DAILY 07/22/13 [Last Taken 08/08/18 08:00] RX: Multivitamins [Multivitamin Kacie] 1 cap PO DAILY 07/22/13 [Last Taken 08/08/18 08:00] RX: Nitroglycerin [Nitrostat] 0.4 mg SL PRN PRN 07/22/13 [Last Taken Unknown] RX: [place]-3 Fatty Acids/Fish Oil [Fish Oil 1,000 mg Softgel] 1 ea PO DAILY 07/22/13 [Last Taken 08/08/18 08:00] RX: Ranitidine HCl 150 mg PO BID PRN 07/22/13 [Last Taken Unknown] atorvastatin 20 mg tablet 20 mg PO DAILY #90 tab 04/12/18 [Last Taken 08/08/18 21:00] RX: Lisinopril/Hydrochlorothiazide [Lisinopril-Hctz 20-12.5 mg Tab] 1 ea PO DAILY 07/16/18 [Last Taken 08/08/18 08:00] RX: Acetaminophen [Tylenol] 1,000 mg PO Q6H PRN tab 07/17/18 [Last Taken Unknown] RX: Apixaban [Eliquis] 5 mg PO BID #60 tab 07/17/18 [Last Taken 08/08/18 21:00] RX: Levothyroxine Sodium [Levoxyl] 100 mcg PO DAILY #30 tab 07/17/18 [Last Taken 08/08/18 08:00] RX: Metoprolol Succinate [Toprol Xl] 150 mg PO DAILY #45 tab.er.24h 07/17/18 [Last Taken 08/08/18 16:00] Calcium Carbonate/Vitamin D3 [Calcium 500-Vit D3 200 Tablet] 1 ea PO BID 08/09/18 [Last Taken 08/08/18 16:00] Isosorbide Mononitrate [Imdur] 60 mg PO DAILY 08/09/18 [Last Taken 08/08/18 08:00] - History of Present Illness Narrative: patient presents to hospital with. acute onset of dyspnea, recently had onst of atrial fib, on elliquis Severity: moderate Initiating event: Reports: unknown Frequency of episodes: Reports: no prior episodes Modifying Factors - (Improves): Reports: nothing Modifying Factors (Worsens): Reports: activity Associated Symptoms-Dyspnea: Reports: palpitations, dizziness, lightheadedness, weakness Prior Treatment: Reports: recently seen, treated by physician Review of Systems - Review of Systems Constitutional: Present: See HPI EYE: Present: no symptoms reported, see HPI ENT: Present: no symptoms reported Respiratory: Present: See HPI, shortness of breath, cough, wheezing Cardiology: Present: no symptoms reported Gastrointestinal/Abdominal: Present: no symptoms reported Genitourinary: Present: no symptoms reported Musculoskeletal: Present: no symptoms reported Skin: Present: no symptoms reported Neurological: Present: no symptoms reported Endocrine: Present: no symptoms reported Hematologic/Lymphatic: Present: no symptoms reported Psych: Present: no symptoms reported All Other Systems: All systems neg except as marked Medical History (Last Reviewed 08/09/18 @ 09:23 by Yanelis Hughes RN) Atrial fibrillation Hypothyroidism CAD (coronary artery disease) Onset Date: ~2011 Hyperlipidemia Onset Date: Unknown Hypertension Onset Date: Unknown Dupuytren contracture Onset Date: Unknown both hands History of myocardial infarction Onset Date: Unknown Surgical History: Surgical History (Last Reviewed 08/09/18 @ 09:23 by Yanelis Hughes RN) History of angioplasty Onset Date: ~1997 History of cataract surgery Onset Date: ~2013 bilateral History of colonoscopy Onset Date: ~2004 History of laparoscopic cholecystectomy Onset Date: ~2009 Hx of appendectomy Onset Date: ~2009 Family History: Family History (Last Reviewed 08/09/18 @ 09:23 by Yanelis Hughes RN) Father Heart disease Mother Heart disease Social History: Preferred Language Vietnamese Do you have any mormonism or No cultural preference? Smoking Status Former smoker Alcohol Use rarely Drug Use none (Last Updated 07/23/18 @ 12:06 by La Nena Mantilla MD) No Social History Section defined Physical Exam - Physical Exam General Appearance: Present: moderate distress, anxious Head Exam: Present: normal inspection, no evidence of injury Eye Exam: Normal inspection: bilateral, PERRL: bilateral, EOMI: bilateral Ears, Nose, Throat: Present: normal ENT inspection, normal pharynx Neck: Present: normal inspection, nontender Respiratory: Present: no respiratory distress, normal breath sounds, no accessory muscle use, chest nontender, lungs clear Cardiovascular/Chest: Present: tachycardia, irregularly irregular Gastrointestinal/Abdominal: Present: normal bowel sounds, nontender, nondistended, soft, no organomegaly Back Exam: Present: normal inspection, normal range of motion, no CVA tenderness, no vertebral tenderness Extremity Exam: Present: normal inspection Neurological Exam: Present: alert, oriented, normal mood/affect, no motor/sensory deficits Skin Exam: Present: normal color, warm/dry Lymphatic Exam: Present: no adenopathy Progress - Results and Orders Patient's Lab Results:: I have reviewed the patient's lab results. - Vital Signs Patient's Vital Signs:: I have reviewed the patient's vital signs. Vital Signs: Vital Signs 08/09/18 05:26 08/09/18 05:46 08/09/18 05:56 Temperature 35.6 C L Pulse Rate 134 H 136 H 125 H Respiratory Rate 30 H Blood Pressure 198/128 H 174/111 H O2 Sat by Pulse Oximetry 99 08/09/18 06:01 08/09/18 06:10 08/09/18 06:15 Temperature Pulse Rate 103 H 76 69 Respiratory Rate 30 H 27 H 27 H Blood Pressure 155/93 H 140/91 H O2 Sat by Pulse Oximetry 96 100 100 08/09/18 07:01 Temperature Pulse Rate 89 Respiratory Rate Blood Pressure 128/77 O2 Sat by Pulse Oximetry - Progress/Reassessment Chief Complaint: Dyspnea Progress:: Improved - Transfer of Care Expected Disposition: Admit Plan - Plan Plan: case discused with dr gresham, to admit to hospital Departure Clinical Impression: CHF (congestive heart failure) Atrial fibrillation Qualifiers: Atrial fibrillation type: paroxysmal Qualified Code(s): I48.0 - Paroxysmal atrial fibrillation - Departure Disposition: Still a patient Condition: Serious
[2018-08-09] MEDS ORDERED: ACETAMINOPHEN 500 MG TABLET PO PRN (15:27)
[2018-08-09] MEDS ORDERED: FAMOTIDINE 20 MG TABLET PO PRN (15:27)
--- NOTE | 2018-08-09 17:43 | HP ---
Chief Complaint - Chief Complaint Date of Service: 08/09/18 Time of Service: 17:42 Chief Complaint: SOB, wheezing History of Present Illness: 78-year-old female presented to the ER after developing shortness of breath and wheezing last night after going to bed. Patient has a history of A. fib and is on Eliquis and metoprolol. When patient got to the ER she was found to have a heart rate in the mid 130s with a BNP of greater than 10,000. Patient was given a dose of Cardizem and some IV Lasix as well as a breathing treatment. She is admitted to the floor for observation while she continued to struggle with her shortness of breath. She initially was satting in the mid 90s on 4 L of oxygen which helped resolve some of her dyspnea. Chest x-ray in the ER showed possible pneumonia the patient does not have any symptoms of this this time as well as having a normal white count. We will continue to monitor this but no antibiotics given in the ER or started while on the floor. ABG also fairly benign. Medical History (Last Reviewed 08/09/18 @ 09:23 by Yanelis Hughes RN) Atrial fibrillation Hypothyroidism CAD (coronary artery disease) Onset Date: ~2011 Hyperlipidemia Onset Date: Unknown Hypertension Onset Date: Unknown Dupuytren contracture Onset Date: Unknown both hands History of myocardial infarction Onset Date: Unknown Surgical History: Surgical History (Last Reviewed 08/09/18 @ 09:23 by Yanelis Hughes RN) History of angioplasty Onset Date: ~1997 History of cataract surgery Onset Date: ~2013 bilateral History of colonoscopy Onset Date: ~2004 History of laparoscopic cholecystectomy Onset Date: ~2009 Hx of appendectomy Onset Date: ~2009 Family History: Family History (Last Reviewed 08/09/18 @ 09:23 by Yanelis Hughes RN) Father Heart disease Mother Heart disease Social History: Patient Lives/Resources With Spouse Utilized 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 Smoking Status Former smoker Have you smoked in the past 12 No months Do you dip or chew tobacco No Alcohol Use rarely Drug Use none (Last Updated 07/23/18 @ 12:06 by La Nena Mantilla MD) No Social History Section defined Review Of Systems (GEN) - Review of Systems Generalized/Overall Review: Absent: Weakness, Chills, Fever EENTM: Present: No Symptoms Reported Respiratory: Present: Shortness of Breath, Wheezing. Absent: Cough Cardiac: Present: Edema, Palpitations. Absent: Chest Pain Abdominal: Absent: Nausea, Vomiting Genitourinary: Present: No Symptoms Reported Musculoskeletal: Present: No Symptoms Reported Neurological: Present: No Symptoms Reported Skin: Present: No Symptoms Reported Endocrine: Present: No Symptoms Reported Immunizations: IMMUNIZATION HX Immunizations Up to Date Yes History of Influenza Vaccine Yes Hx Pneumococcal Vaccination Yes Allergies/Adverse Reactions: Allergies Allergy/AdvReac Type Severity Reaction Status Date / Time methylprednisolone Allergy Intermediate SWELLED UP Verified 08/09/18 05:49 ALL OVER, GAINED 20 LBS SUDDENLY Sulfa (Sulfonamide AdvReac Mild RASH Verified 08/09/18 05:49 Antibiotics) Home Medications: HOME MEDICATIONS Aspirin [Aspirin Enteric Coated] 81 mg PO DAILY 07/22/13 [Last Taken 08/08/18 08:00] Multivitamins [Multivitamin Kacie] 1 cap PO DAILY 07/22/13 [Last Taken 08/08/18 08:00] Nitroglycerin [Nitrostat] 0.4 mg SL PRN PRN 07/22/13 [Last Taken Unknown] [place]-3 Fatty Acids/Fish Oil [Fish Oil 1,000 mg Softgel] 1 ea PO DAILY 07/22/13 [Last Taken 08/08/18 08:00] Ranitidine HCl 150 mg PO BID PRN 07/22/13 [Last Taken Unknown] atorvastatin 20 mg tablet 20 mg PO DAILY #90 tab 04/12/18 [Last Taken 08/08/18 21:00] Lisinopril/Hydrochlorothiazide [Lisinopril-Hctz 20-12.5 mg Tab] 1 ea PO DAILY 07/16/18 [Last Taken 08/08/18 08:00] Acetaminophen [Tylenol] 1,000 mg PO Q6H PRN tab 07/17/18 [Last Taken Unknown] Apixaban [Eliquis] 5 mg PO BID #60 tab 07/17/18 [Last Taken 08/08/18 21:00] Levothyroxine Sodium [Levoxyl] 100 mcg PO DAILY #30 tab 07/17/18 [Last Taken 08/08/18 08:00] Metoprolol Succinate [Toprol Xl] 150 mg PO DAILY #45 tab.er.24h 07/17/18 [Last Taken 08/08/18 16:00] Calcium Carbonate/Vitamin D3 [Calcium 500-Vit D3 200 Tablet] 1 ea PO BID [Last Taken 08/08/18 16:00] Isosorbide Mononitrate [Imdur] 60 mg PO DAILY 08/09/18 [Last Taken 08/08/18 08:00] Exam - Exam Vital Signs: Vital Signs - Last Taken Temp 36.7 C 08/09/18 15:49 Pulse 99 08/09/18 15:49 Resp 24 H 08/09/18 15:49 BP 146/92 H 08/09/18 15:49 Pulse Ox 98 08/09/18 15:49 Constitutional: Present: Alert, Oriented x3, Cooperative, Well developed Neck: Present: non-tender, full range of motion. Absent: lymphadenopathy (R), lymphadenopathy (L) Respiratory: Present: lungs clear, normal breath sounds. Absent: wheezing Cardiovascular/Chest: Present: irregularly irregular. Absent: tachycardia, systolic murmur Abdomen: Present: Normal bowel sounds, soft, nontender /Rectal: Present: Exam deferred Skin Exam: Present: normal color, warm/dry Appearance: Present: appropriate appearance, appropriate insight Eye contact: Present: cooperative, good eye contact, normal speech Thoughts: Present: normal thought pattern, normal mood /affect Diagnostic Studies: Abnormal Lab Results 08/09/18 08/09/18 08/09/18 Range/Units 05:40 05:55 05:55 Immature Gran % (Auto) 1.00 H (0.001-0.429) % Immature Gran # (Auto) 0.10 H (0.000-0.0310) K/mm3 Neutrophils % 79.1 H (42-75.0) % Lymphocytes % 14.3 L (20-51) % Neutrophils # 7.9 H (1.3-6.0) K/mm3 Lymphocytes # 1.42 L (1.5-3.5) k/mm3 pO2 82.0 L (83.0-108.0) mmHg Base Excess -3.2 L (-2.0-3.0) mmol/L Est GFR (Non-Af Amer) 47 L (60-130) mL/min Random Glucose 216 H (70-110) mg/dL AST 101 H (0-48) U/L ALT 153 H (19-67) U/L B-Natriuretic Peptide 58402 H (5-550) pg/mL Albumin 3.3 L (3.4-5.0) gm/dl Laboratory Results WBC 9.9 K/mm3 (4.0-10.5) 08/09/18 05:55 RBC 4.80 M/mm3 (4.2-5.4) 08/09/18 05:55 Hgb 14.7 gm/dL (12.5-16.0) 08/09/18 05:55 Hct 45.8 % (37.0-47.0) 08/09/18 05:55 MCV 95.4 fl (78-100) 08/09/18 05:55 MCH 30.6 pg (27-31) 08/09/18 05:55 MCHC 32.1 g/dl (32-36) 08/09/18 05:55 RDW 12.5 % (11.5-14.0) 08/09/18 05:55 Plt Count 212 K/mm3 (150-450) 08/09/18 05:55 MPV 10.6 fl (8-12.5) 08/09/18 05:55 Immature Gran % (Auto) 1.00 % (0.001-0.429) H 08/09/18 05:55 Immature Gran # (Auto) 0.10 K/mm3 (0.000-0.0310) H 08/09/18 05:55 Neutrophils % 79.1 % (42-75.0) H 08/09/18 05:55 Lymphocytes % 14.3 % (20-51) L 08/09/18 05:55 Monocytes % 4.3 % (0.0-9) 08/09/18 05:55 Eosinophils % 0.9 % (0.0-3.0) 08/09/18 05:55 Basophils % 0.4 % (0.0-1.0) 08/09/18 05:55 Nucleated RBC % 0.0 k/mm3 (0-1) 08/09/18 05:55 Neutrophils # 7.9 K/mm3 (1.3-6.0) H 08/09/18 05:55 Lymphocytes # 1.42 k/mm3 (1.5-3.5) L 08/09/18 05:55 Monocytes # 0.4 k/mm3 (0.0-1.0) 08/09/18 05:55 Eosinophils # 0.1 k/mm3 (0.0-0.7) 08/09/18 05:55 Absolute Basophils 0.0 k/mm3 (0.0-0.1) 08/09/18 05:55 pCO2 40.9 mmHg (32.0-45.0) 08/09/18 05:40 pO2 82.0 mmHg (83.0-108.0) L 08/09/18 05:40 HCO3 22.2 mmol/L (21.0-28.0) 08/09/18 05:40 Total CO2 23.4 mmol/L (19.0-24.0) 08/09/18 05:40 Base Excess -3.2 mmol/L (-2.0-3.0) L 08/09/18 05:40 ABG pH 7.35 (7.35-7.45) 08/09/18 05:40 ABG O2 Sat (Measured) 95.6 % (94.0-98.0) 08/09/18 05:40 Sodium 140 mmol/L (132-142) 08/09/18 05:55 Plasma Sodium 142 mmol/L (130-142) 08/09/18 05:55 Potassium 3.9 mmol/L (3.4-4.6) 08/09/18 05:55 Chloride 104 mmol/L (97-106) 08/09/18 05:55 Carbon Dioxide 28.2 mmol/L (24-32.6) 08/09/18 05:55 Anion Gap 11.7 mmol/L (6.8-13.8) 08/09/18 05:55 BUN 23 mg/dL (3-23) 08/09/18 05:55 Creatinine 1.18 mg/dL (0.4-1.4) 08/09/18 05:55 Est GFR (Non-Af Amer) 47 mL/min (60-130) L 08/09/18 05:55 BUN/Creatinine Ratio 19.5 (9.0-21.6) 08/09/18 05:55 Random Glucose 216 mg/dL (70-110) H 08/09/18 05:55 Calcium 8.8 mg/dL (7.9-10.9) 08/09/18 05:55 Calcium Adj for Albumin 9.0 mg/dL (8.4-10.2) 08/09/18 05:55 Total Bilirubin 0.8 mg/dL (0.0-1.1) 08/09/18 05:55 AST 101 U/L (0-48) H 08/09/18 05:55 ALT 153 U/L (19-67) H 08/09/18 05:55 Alkaline Phosphatase 110 U/L (50-170) 08/09/18 05:55 Troponin I Less than 0.017 ng/mL (0.00-0.10) 08/09/18 05:55 B-Natriuretic Peptide 39860 pg/mL (5-550) H 08/09/18 05:55 Total Protein 6.3 gm/dL (6.2-8.2) 08/09/18 05:55 Albumin 3.3 gm/dl (3.4-5.0) L 08/09/18 05:55 Assessment/Plan - Narrative Narrative: Patient likely has acute exacerbation of her CHF (that she is currently unaware of having a diagnosis of CHF). She currently takes metoprolol and lisinopril hydrochlorothiazide. We will continue these as she has been on them since prior to this acute exacerbation. We continue her on Lasix 40 mg IV daily while here in the hospital and likely send her out with instructions on how to take and how to monitor her weight, shortness of breath, swelling in her feet. She likely will need an outpatient echocardiogram. Atrial fibrillation appears to be back in regular rate. Continue metoprolol and Eliquis at current doses. Low-sodium diet ordered, no DVT prophylaxis needed as she is on Eliquis. We will continue her other chronic medications for her hypertension, hypothyroidism, and hyperlipidemia. Patient and are in agreement of treatment plan, nurse will call with any questions or concerns. - Assessment/Plan (1) CHF (congestive heart failure) Problem: Acute (2) Atrial fibrillation Problem: Acute Qualifiers: Atrial fibrillation type: paroxysmal Qualified Code(s): I48.0 - Paroxysmal atrial fibrillation (3) HTN (hypertension) Problem: Acute
[2018-08-09] MEDS: ISOSORBIDE MONONITRATE 60 MG TAB.SR.24H PO SCH (17:57)
[2018-08-09] MEDS: METOPROLOL SUCCINATE 100 MG TABLET.SA PO SCH (17:59)
[2018-08-09] MEDS ORDERED: LEVOTHYROXINE SODIUM 100 MCG TABLET PO ONE (18:00)
[2018-08-09] MEDS ORDERED: HYDROCHLOROTHIAZIDE 12.5 MG CAPSULE PO ONE (18:00)
[2018-08-09] MEDS: APIXABAN 5 MG TABLET PO SCH (21:05)
[2018-08-10] MEDS ORDERED: LEVOTHYROXINE SODIUM 100 MCG TABLET PO SCH ×2 (07:00)
[2018-08-10] MEDS: APIXABAN 5 MG TABLET PO SCH (08:55)
[2018-08-10] MEDS: ISOSORBIDE MONONITRATE 60 MG TAB.SR.24H PO SCH (08:59)
[2018-08-10] MEDS ORDERED: ASPIRIN 81 MG TABLET.DR PO SCH (09:00)
[2018-08-10] MEDS ORDERED: NON-FORMULARY 1 DOSE DOSE (Lisinopril/Hydrochlorothiazide [Lisinopril-Hctz 20-12.5 Mg Tab] PO SCH (09:00)
[2018-08-10] MEDS ORDERED: ROSUVASTATIN CALCIUM 10 MG TABLET PO SCH (09:00)
[2018-08-10] MEDS ORDERED: LISINOPRIL 20 MG TABLET PO SCH (09:00)
[2018-08-10] MEDS ORDERED: ISOSORBIDE MONONITRATE 60 MG TAB.SR.24H PO SCH (09:00)
[2018-08-10] MEDS ORDERED: HYDROCHLOROTHIAZIDE 12.5 MG CAPSULE PO SCH (09:00)
[2018-08-10] MEDS ORDERED: METOPROLOL SUCCINATE 50 MG TABLET.SA PO SCH (09:00)
[2018-08-10] MEDS: METOPROLOL SUCCINATE 100 MG TABLET.SA PO SCH (09:05)
--- NOTE | 2018-08-10 12:03 | DS ---
(1) CHF (congestive heart failure) Problem: Acute (2) Atrial fibrillation Problem: Acute Qualifiers: Atrial fibrillation type: paroxysmal Qualified Code(s): I48.0 - Paroxysmal atrial fibrillation (3) HTN (hypertension) Problem: Acute Description of Stay: 78-year-old female presented to the ER following rapid onset shortness of breath, cough, swelling in her feet. Patient has a history of congestive heart failure as well as atrial fibrillation. Her heart rate initially was in the 130s and she was found to have a BNP of greater than 10,000. She was admitted for shortness of breath, dyspnea, acute exacerbation of her heart failure, as well as elevated heart rate. A dose of diltiazem with resumed use of her metoprolol brought her back into normal rate. Patient was given diuretics in the ER as well as a breathing treatment which made her feel better. She did diurese close to 7 pounds. She was able to get off oxygen on the day of admission and has been able to tolerate ambulation without O2 sats dropping. Patient is a Dr. Mantilla patient who I recommend that she follow-up with the next 5-7 days. She will likely need an outpatient echocardiogram to evaluate her heart failure as she has not had 1 of these in years. Patient is on Eliquis twice daily for her atrial fibrillation. 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 She currently takes metoprolol and lisinopril. She does not have a prescription for Lasix which she will go home with today to be taken as needed. Discussed in detail monitoring her weight, her edema, and if she develops shortness of breath/coughand she will need to take Lasix as directed. Overall her vital signs have been stable during this admission once her heart rate was controlled Of note patient did have an elevated glucose of 216 but after reviewing her records all of her sugars have been less than 100 and I think this is just an anomaly due to her likely eating prior to the test. We will have her follow-up with Dr. Mantilla in regards to this but I doubt she has diabetes at this time. She has no signs or symptoms of diabetes either. No changes to her home medications other than adding 20 mg Lasix as needed Procedures Performed: none Results and Findings: Pending Mircobiology Results 08/09/18 06:05 Blood Blood Culture - Preliminary NO GROWTH 24 HOURS 08/09/18 05:55 Blood Blood Culture - Preliminary NO GROWTH 24 HOURS Lab Pending Results 08/09/18 05:40: pCO2 40.9, pO2 82.0 L, HCO3 22.2, Total CO2 23.4, Base Excess - 3.2 L, ABG pH 7.35, ABG O2 Sat (Measured) 95.6 08/09/18 05:55: Sodium 140, Plasma Sodium 142, Potassium 3.9, Chloride 104, Carbon Dioxide 28.2, Anion Gap 11.7, BUN 23, Creatinine 1.18, Est GFR (Non-Af Am er) 47 L, BUN/Creatinine Ratio 19.5, Random Glucose 216 H, Calcium 8.8, Calcium Adj for Albumin 9.0, Total Bilirubin 0.8, AST 101 H, ALT 153 H, Alkaline Phosphatase 110, Troponin I Less than 0.017, B-Natriuretic Peptide 39719 H, Total Protein 6.3, Albumin 3.3 L 08/09/18 05:55: WBC 9.9, RBC 4.80, Hgb 14.7, Hct 45.8, MCV 95.4, MCH 30.6, MCHC 32.1, RDW 12.5, Plt Count 212, MPV 10.6, Immature Gran % (Auto) 1.00 H, Immature Gran # (Auto) 0.10 H, Neutrophils % 79.1 H, Lymphocytes % 14.3 L, Monocytes % 4.3, Eosinophils % 0.9, Basophils % 0.4, Nucleated RBC % 0.0, Neutrophils # 7.9 H, Lymphocytes # 1.42 L, Monocytes # 0.4, Eosinophils # 0.1, Absolute Basophils 0.0 Discharge Location: Home Disposition: Home self-care Condition: Good Discharge Activity: Activity as tolerated Discharge Diet: Low salt Referrals: La Nena Mantilla MD [Primary Care Provider] - One Week Additional Patient Instructions (free text): -Please notify me @ discharge. Thank you! Adamaris @ [phone]. Prescriptions (Any new or edited meds): Furosemide [Lasix] 20 mg PO DAILY PRN #30 tab PRN Reason: Shortness Of Breath Complete Home Medications List: Complete Home Medication List: Aspirin [Aspirin Enteric Coated] 81 mg PO DAILY 07/22/13 Multivitamins [Multivitamin Kacie] 1 cap PO DAILY 07/22/13 Nitroglycerin [Nitrostat] 0.4 mg SL PRN PRN 07/22/13 [place]-3 Fatty Acids/Fish Oil [Fish Oil 1,000 mg Softgel] 1 ea PO DAILY 07/22/13 Ranitidine HCl 150 mg PO BID PRN 07/22/13 atorvastatin 20 mg tablet 20 mg PO DAILY #90 tab 04/12/18 Lisinopril/Hydrochlorothiazide [Lisinopril-Hctz 20-12.5 mg Tab] 1 ea PO DAILY 07/16/18 Acetaminophen [Tylenol] 1,000 mg PO Q6H PRN tab 07/17/18 Apixaban [Eliquis] 5 mg PO BID #60 tab 07/17/18 Levothyroxine Sodium [Levoxyl] 100 mcg PO DAILY #30 tab 07/17/18 Metoprolol Succinate [Toprol Xl] 150 mg PO DAILY #45 tab.er.24h 07/17/18 Calcium Carbonate/Vitamin D3 [Calcium 500-Vit D3 200 Tablet] 1 ea PO BID 08/09/18 Isosorbide Mononitrate [Imdur] 60 mg PO DAILY 08/09/18 Furosemide [Lasix] 20 mg PO DAILY PRN #30 tab 08/10/18
[2018-08-10 13:44] VITALS: BP 124/69
== END 2018-08-10 13:10 | disposition home or self-care (01) | DRG 293 ==
LOC: ER 05:26 → MS 07:14
PROVIDERS: ADMIT Family Medicine; ATTEND Family Medicine
CPT/HCPCS: 36415; 36600; 71020; 71046; 80053; 82803; 83519; 83880; 84484; 85025; 87040; 93005; 94640; 94664; 94760; 96374; 96375; 99285

== ENCOUNTER 2020-08-11 16:08 | Observation (INO) ==
[2020-08-11] MEDS ORDERED: MORPHINE SULFATE 2 MG/ML DISP.SYRIN IV ONE (16:18)
--- NOTE | 2020-08-11 16:28 | ERNOTE ---
Trauma/Assault HPI - Narrative Date of Service: 08/11/20 - General Stated Complaint: fall Time Seen by Provider: 08/11/20 16:09 Source: patient Exam Limitations: no limitations - Immun/Allergies/Home Medications Immunizations: IMMUNIZATION HX Immunizations Up to Date Yes History of Influenza Vaccine Yes Hx Pneumococcal Vaccination Yes Allergies/Adverse Reactions: Allergies methylprednisolone Allergy (Intermediate, Verified 08/11/20 17:34) SWELLED UP ALL OVER, GAINED 20 LBS SUDDENLY Sulfa (Sulfonamide Antibiotics) Adverse Reaction (Mild, Verified 08/11/20 17:34) RASH Home Medications: HOME MEDICATIONS Aspirin [Aspirin Enteric Coated] 81 mg PO DAILY 07/22/13 [Last Taken 08/08/18 08:00] Multivitamins [Multivitamin Kacie] 1 cap PO DAILY 07/22/13 [Last Taken 08/08/18 08:00] Nitroglycerin [Nitrostat] 0.4 mg SL PRN PRN 07/22/13 [Last Taken Unknown] [place]-3 Fatty Acids/Fish Oil [Fish Oil 1,000 mg Softgel] 1 ea PO DAILY 07/22/13 [Last Taken 08/08/18 08:00] Lisinopril/Hydrochlorothiazide [Lisinopril-Hctz 20-12.5 mg Tab] 1 ea PO DAILY 07/16/18 [Last Taken 08/08/18 08:00] Acetaminophen [Tylenol] 1,000 mg PO Q6H PRN tab 07/17/18 [Last Taken Unknown] Calcium Carbonate/Vitamin D3 [Calcium 500-Vit D3 200 Tablet] 1 ea PO BID 08/09/18 [Last Taken 08/08/18 16:00] furosemide 20 mg tablet 20 mg PO DAILY PRN #30 tab 09/10/18 [Last Taken Unknown] metoprolol succinate 100 mg tablet,extended release 24 hr 150 mg PO DAILY #45 tab.er.24h 10/26/18 [Last Taken Unknown] amiodarone 200 mg tablet 200 mg PO DAILY 01/19/19 [Last Taken Unknown] apixaban 5 mg tablet 5 mg PO BID #180 tab 01/26/19 [Last Taken Unknown] isosorbide mononitrate 30 mg tablet,extended release 24 hr 60 mg PO DAILY #180 tab 08/22/19 [Last Taken Unknown] atorvastatin 20 mg tablet See Rx Instructions .ROUTE .COMPLEX #90 unspecified 07/02/20 [Last Taken Unknown] - Pain Pain Score #1 Pain Score: 4 - History of Present Illness Narrative: The patient is a 80 year old female who presents 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 There are associated symptoms of left facial swelling and left hip pain. The patient reports pain to left hip, 4/10 at rest. There are alleviating factors of immobilization. There are aggravating factors of weight bearing to left hip. Previous treatments have included: none. The past medical history includes: CAD, HTN, HLD, CA, AFib and hypothyroid. The social history is positive for former smoker. The patient has had no known ill contacts. Patient states she was using a weed remover to clean her flower beds when the remover became stuck in the gravel attempting to remove dandelion. Patient states she stepped back to get more leverage to pull remover from gravel and lost her balance falling onto her patio. Patient states she struck left side of head and face on overnight babysitter and landed on left hip. Patient denies LOC but due to hip pain was unable to get up from the ground and had to wait for her . Patient states that was unable to hear her call for help due to being on the other side of the house and she laid on the patio for approxima tely 30-45 minutes. Review of Systems - Review of Systems Constitutional: Present: no symptoms reported. Absent: recent illness, fever, fatigue EYE: Present: no symptoms reported ENT: Present: no symptoms reported. Absent: ear pain, nasal drainage, sore throat Respiratory: Present: no symptoms reported. Absent: shortness of breath, cough Cardiology: Present: no symptoms reported. Absent: chest pain Gastrointestinal/Abdominal: Present: no symptoms reported. Absent: nausea, vomiting, diarrhea, abdominal pain Genitourinary: Present: no symptoms reported. Absent: dysuria Musculoskeletal: Present: joint pain. Absent: back pain, neck pain Skin: Present: no symptoms reported Neurological: Present: headache. Absent: dizziness/light-headedness All Other Systems: All systems neg except as marked Medical History (Last Reviewed 08/11/20 @ 16:25 by KIMBERLY Hay) Atrial fibrillation Hypothyroidism CAD (coronary artery disease) Onset Date: ~2011 Hyperlipidemia Onset Date: Unknown Hypertension Onset Date: Unknown Dupuytren contracture Onset Date: Unknown both hands History of myocardial infarction Onset Date: Unknown Surgical History: Surgical History (Last Reviewed 08/11/20 @ 16:25 by KIMBERLY Hay) History of angioplasty Onset Date: ~1997 History of cataract surgery Onset Date: ~2013 bilateral History of colonoscopy Onset Date: ~2004 History of laparoscopic cholecystectomy Onset Date: ~2009 Hx of appendectomy Onset Date: ~2009 Family History: Family History (Last Reviewed 08/11/20 @ 16:25 by KIMBERLY Hay) Father Heart disease Mother Heart disease Social History: (Last Reviewed 08/11/20 @ 16:25 by KIMBERLY Hay) Social History: adopted: No senior living: No Marital status: lives independently: No household members: spouse number of children: 2 caregiver/support person: No current occupational status: retired Highest level of school completed/degree received: high school graduate Service: No Tobacco: Smoking Status: Former smoker Alcohol: alcohol intake: current alcohol intake frequency: holiday/special occasion Substance Use: substance use type: does not use Dietary Habits: caffeine: Yes Physical Exam - Physical Exam General Appearance: Present: wd/wn, alert, moderate distress Head Exam: Present: lacerations - left cheek avulsion, swelling - left upper and lower eyelid with ecchymosis, tenderness. Absent: active bleeding, Everett's Sign Eye Exam: PERRL: bilateral, EOMI: bilateral, Scleral icterus: bilateral - left scleral edema, Other: left - negative joey sign Neck: Present: normal inspection, nontender, full range of motion Respiratory: Present: no respiratory distress, normal breath sounds, no accessory muscle use, chest nontender, lungs clear Cardiovascular/Chest: Present: regular rate, rhythm, systolic murmur Gastrointestinal/Abdominal: Present: normal bowel sounds, nontender, nondistended, soft, no organomegaly Extremity Exam: Present: bony tenderness - left lateral and anterior hip, extremity edema - 2+ pitting bilateral lower extremities Neurological Exam: Present: alert, oriented, normal mood/affect, no motor/sensory deficits Skin Exam: Present: normal color, warm/dry - C-Spine cleared by: Neg history & exam Progress - Date and Time Seen: Date and Time: 08/11/20 17:22 Negative plain film of left hip and pelvis but patient unable to bear weight, will proceed with CT imaging. Concern of pelvic lutency. 08/11/20 18:00 Review of imaging discussed with Rell COBURN. No further care from orthopedic standpoint. Patient has several stairs to her home and has been having difficulty with weight bearing during visit, will admit to medicine for PT consult. 08/11/20 18:30 Review of eye exam with , images of left eye sent via [employer] for review. After discussion with does not feel patient needs emergent exam can contact office on Thursday for follow up appt. Plan of care for admission was discussed with patient, verbalizes understanding. 08/11/20 18:45 Case was reviewed with , will admit for pain control and consult with physical therapy to aid with mobility. - Results and Orders Patient's Lab Results:: I have reviewed the patient's lab results. - Vital Signs Patient's Vital Signs:: I have reviewed the patient's vital signs. Vital Signs: Vital Signs 08/11/20 16:08 Temperature 36.8 C Pulse Rate 74 Respiratory Rate 16 Blood Pressure 241/97 H O2 Sat by Pulse Oximetry 95 - EKG EKG #1 EKG: NSR - first degree AV block, nonspecific ST T wave changes EKG read: Reviewed by me - X-Ray X-Ray #1 X-Ray: hip Interpretation: Reviewed by me X-ray Comments: IMPRESSION: DJD. NO ACUTE LEFT HIP OR PELVIC ABNORMALITY. Electronically signed by Pepe Atwood MD. X-Ray #2 X-Ray: chest Interpretation: Reviewed by me X-ray Comments: IMPRESSION: STABLE CARDIOMEGALY AND CENTRAL PULMONARY VASCULAR PROMINENCE. OLD HEALED RIGHT-SIDED RIB FRACTURES. NO ACUTE OR TRAUMATIC ABNORMALITY OF THE CHEST. Electronically signed by Pepe Atwood MD. - CT/Ultrasound CT/Ultrasound Narrative: IMPRESSION: LEFT PERIORBITAL SOFT TISSUE SWELLING. OTHERWISE UNREMARKABLE CT OF THE FACIAL BONES WITH NO EVIDENCE OF ACUTE FRACTURE. Electronically signed by Pepe Atwood MD. IMPRESSION: MODERATE CERVICAL SPONDYLOSIS AND PROBABLE POSITIONAL STRAIGHTENING OF CERVICAL CURVATURE. NO ACUTE TRAUMATIC ABNORMALITIES. Electronically signed by Pepe Atwood MD. IMPRESSION:Comminuted minimally displaced fracture of the anterior column of the left acetabulum and the superior and mid inferior pubic rami, as described. Electronically signed by Pepe Atwood MD. - Progress/Reassessment Chief Complaint: Fall Progress:: Improved Departure Clinical Impression: Fall Qualifiers: Encounter type: initial encounter Qualified Code(s): W19.XXXA - Unspecified fal l, initial encounter Pelvic fracture Qualifiers: Encounter type: initial encounter Pelvic bone location: multiple parts Fracture type: closed Fracture alignment: with stable disruption of pelvic ring Qualified Code(s): S32.810A - Multiple fractures of pelvis with stable disruption of pelvic ring, initial encounter for closed fracture - Departure Disposition: Still a patient Condition: Fair Critical Care Time - Critical Care Critical Time Spent:: No
[2020-08-11 16:48] LABS: Hematocrit 40.7 % (37.0-47.0); Hemoglobin 13.4 gm/dL (12.5-16.0); Mean Cell Volume 94.9 fl (78-100); Mean Corpuscular Hemoglobin 31.2 pg (27-31); Mean Corpuscular Hgb Conc 32.9 g/dl (32-36); Mean Platelet Volume 9.8 fl (8-12.5); Platelet Count 186 K/mm3 (150-450); Prothrombin Time (Patient) 12.3 Seconds (9.1-10.7); Red Blood Count 4.29 M/mm3 (4.2-5.4); Red Cell Distribution Width 12.8 % (11.5-14.0); White Blood Count 9.8 K/mm3 (4.0-10.5)
[2020-08-11 16:49] LABS: INR 1.19 INR (0.92-1.08); Partial Thrombolplastin Time 27.1 Seconds (24-32)
[2020-08-11 16:55] LABS: Albumin * 3.4 gm/dl (3.4-5.0); BUN/Creatinine Ratio 13.1 (9.0-21.6); Bilirubin, Total 0.6 mg/dL (0.0-1.1); Ca. Corrected For Albumin 8.6 mg/dL (8.4-10.2); Calcium * 8.4 mg/dL (7.9-10.9); Carbon Dioxide 29.6 mmol/L (24-32.6); Potassium 3.6 mmol/L (3.4-4.6); Total Protein 6.5 gm/dL (6.2-8.2)
[2020-08-11 16:57] LABS: Total Cells Counted 100
[2020-08-11 17:05] LABS: Atypical (Reactive) Lymph 4 % (0-2); Band 2 % (0-2.0); Basophil 1 % (0-1); Eosinophil 2 % (0-3); Lymphocyte 1 % (20-51); Monocyte 7 % (0-9); Neutrophil 83 % (42-75); Neutrophil # 8.1 K/mm3 (1.3-6.0); Platelet Estimate Normal (NORMAL); RBC Morphology Normal (NORMAL)
[2020-08-11] MEDS ORDERED: MORPHINE SULFATE 4 MG/ML SYRG IV ONE (17:17)
[2020-08-11] MEDS ORDERED: ONDANSETRON HCL/PF 2 MG/ML VIAL IV ONE (17:17)
[2020-08-11] MEDS ORDERED: HYDROcodone/ACETAMINOPHEN 1 EACH TABLET PO ONE (19:57)
[2020-08-11] MEDS ORDERED: ACETAMINOPHEN 325 MG TABLET PO PRN (20:20)
[2020-08-11] MEDS ORDERED: ACETAMINOPHEN 500 MG TABLET PO PRN (21:01)
[2020-08-11] MEDS ORDERED: FUROSEMIDE 20 MG TABLET PO PRN (21:01)
[2020-08-11] MEDS ORDERED: NITROGLYCERIN 0.4 MG/TAB BTL SL PRN (21:01)
[2020-08-11] MEDS ORDERED: APIXABAN 5 MG TABLET PO SCH (21:15)
[2020-08-11] MEDS ORDERED: amLODIPine BESYLATE 5 MG TABLET PO ONE (21:52)
[2020-08-11] MEDS: CALCIUM CARBONATE/VITAMIN D3 1 TAB TABLET PO SCH (22:03)
[2020-08-12] MEDS: HYDROcodone/ACETAMINOPHEN 1 EACH TABLET PO PRN (02:42)
[2020-08-12] MEDS: ONDANSETRON HCL/PF 2 MG/ML VIAL IV PRN ×2 (07:42→16:30)
--- NOTE | 2020-08-12 08:33 | HP ---
Chief Complaint - Chief Complaint Date of Service: 08/12/20 Time of Service: 07:51 Chief Complaint: fall History of Present Illness: Scarlet Law is an 80 year old female, patient of , with PMH of CAD s/p POBA of LCx, chronic atrial fibrillation s/p cardioversion, hypothyroidism, hypertension, Congestive heart failure who was admitted on 08/11/2020 due to a fall and left facial swelling. She was cleaning up her garden when the the weed remover got stuck to a dandelion and while trying to pull it fell on her left hip and hit the left side of her face against a cigar head stringer. She was brought to the ED via POV and hip and pelvic xray showed no acute pelvic/hip abnormality. Her lower extremity CTS however showed- Comminuted minimally displaced fracture of the anterior column of the left acetabulum and the supe rior and mid inferior pubic rami, as described. Her head CTS showed- NO ACUTE INTRACRANIAL ABNORMALITY OR SKULL FRACTURE. MODERATE CHRONIC SENESCENT CHANGE. 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 Her cervical CTS showed- MODERATE CERVICAL SPONDYLOSIS AND PROBABLE POSITIONAL STRAIGHTENING OF CERVICAL CURVATURE. NO ACUTE TRAUMATIC ABNORMALITIES. Her who is over 80 years old was on the other side of the house and could not hear her and so she was laying down there for 1/2 hour. She was then admitted for pain control and PT/OT evaluation and treatment. She is able to count my fingers grossly . She is continously oozing from her left facial trauma per nurse. Medical History (Last Reviewed 08/11/20 @ 20:38 by Erendira Murcia RN) Atrial fibrillation Hypothyroidism CAD (coronary artery disease) Onset Date: ~2011 Hyperlipidemia Onset Date: Unknown Hypertension Onset Date: Unknown Dupuytren contracture Onset Date: Unknown both hands History of myocardial infarction Onset Date: Unknown Surgical History: Surgical History (Last Reviewed 08/11/20 @ 20:39 by Erendira Murcia RN) History of angioplasty Onset Date: ~1997 History of cataract surgery Onset Date: ~2013 bilateral History of colonoscopy Onset Date: ~2004 History of laparoscopic cholecystectomy Onset Date: ~2009 Hx of appendectomy Onset Date: ~2009 Family History: Family History (Last Reviewed 08/11/20 @ 20:39 by Erendira Murcia RN) Father Heart disease Mother Heart disease Social History: (Last Reviewed 08/11/20 @ 20:39 by Erendira Murcia RN) Social History: adopted: No assisted: No Marital status: lives independently: No household members: spouse number of children: 2 caregiver/support person: No current occupational status: retired Highest level of school completed/degree received: high school graduate Service: No Tobacco: Smoking Status: Former smoker Alcohol: alcohol intake: current alcohol intake frequency: holiday/special occasion Substance Use: substance use type: does not use Dietary Habits: caffeine: Yes Review Of Systems (GEN) - Review of Systems Generalized/Overall Review: Present: Weakness. Absent: Chills, Fever EENTM: Absent: Blurred Vision Respiratory: Absent: Cough, Shortness of Breath, Orthopnea Cardiac: Absent: Chest Pain, Edema, Palpitations Abdominal: Absent: Nausea, Vomiting, Abdominal Pain Genitourinary: Absent: Urgency, Frequency Musculoskeletal: Present: Joint Pain. Absent: Back Pain, Neck Pain Neurological: Absent: Anxiety, Depressed Skin: Present: Lesions - ecchymoses, hematoma, Bruising Immunizations: IMMUNIZATION HX Immunizations Up to Date Yes History of Influenza Vaccine Yes Hx Pneumococcal Vaccination Yes Allergies/Adverse Reactions: Allergies Allergy/AdvReac Type Severity Reaction Status Date / Time methylprednisolone Allergy Intermediate SWELLED UP Verified 08/11/20 17:34 ALL OVER, GAINED 20 LBS SUDDENLY Sulfa (Sulfonamide AdvReac Mild RASH Verified 08/11/20 17:34 Antibiotics) Home Medications: HOME MEDICATIONS Aspirin [Aspirin Enteric Coated] 81 mg PO DAILY 07/22/13 [Last Taken 08/08/18 08:00] Multivitamins [Multivitamin Kacie] 1 cap PO DAILY 07/22/13 [Last Taken 08/08/18 08:00] Nitroglycerin [Nitrostat] 0.4 mg SL PRN PRN 07/22/13 [Last Taken Unknown] [place]-3 Fatty Acids/Fish Oil [Fish Oil 1,000 mg Softgel] 1 ea PO DAILY 07/22/13 [Last Taken 08/08/18 08:00] Lisinopril/Hydrochlorothiazide [Lisinopril-Hctz 20-12.5 mg Tab] 1 ea PO DAILY 07/16/18 [Last Taken 08/08/18 08:00] Acetaminophen [Tylenol] 1,000 mg PO Q6H PRN tab 07/17/18 [Last Taken Unknown] Calcium Carbonate/Vitamin D3 [Calcium 500-Vit D3 200 Tablet] 1 ea PO BID 08/09/18 [Last Taken 08/08/18 16:00] furosemide 20 mg tablet 20 mg PO DAILY PRN #30 tab 09/10/18 [Last Taken Unknown] metoprolol succinate 100 mg tablet,extended release 24 hr 150 mg PO DAILY #45 tab.er.24h 10/26/18 [Last Taken Unknown] amiodarone 200 mg tablet 200 mg PO DAILY 01/19/19 [Last Taken Unknown] apixaban 5 mg tablet 5 mg PO BID #180 tab 01/26/19 [Last Taken Unknown] isosorbide mononitrate 30 mg tablet,extended release 24 hr 60 mg PO DAILY #180 tab 08/22/19 [Last Taken Unknown] atorvastatin 20 mg tablet See Rx Instructions .ROUTE .COMPLEX #90 unspecified 07/02/20 [Last Taken Unknown] Exam - Exam Vital Signs: Vital Signs - Last Taken Temp 36.8 C 08/12/20 05:00 Pulse 67 08/12/20 05:00 Resp 18 08/12/20 05:00 BP 164/65 H 08/12/20 05:00 Pulse Ox 94 08/12/20 05:00 Constitutional: Present: Alert, Oriented x3, Cooperative, Elderly ENT Exam: Present: hearing grossly normal Eye Exam: bilateral eye: PERRL, EOMI, left eye: normal inspection - periorbital hematoma/abrasion, left cheek Neck: Present: supple. Absent: lymphadenopathy (R), lymphadenopathy (L) Respiratory: Present: decreased breath sounds, No rales, No wheezing Cardiovascular/Chest: Present: no JVD, no murmur, irregularly irregular Abdomen: Present: Normal bowel sounds, soft, nontender, nondistended Extremity: Present: no pedal edema, no calf tenderness Skin Exam: Present: other - bruising, left arm, abrasion, left hand Diagnostic Studies: Abnormal Lab Results 08/11/20 08/11/20 08/11/20 Range/Units 16:28 16:28 16:28 MCH 31.2 H (27-31) pg Neutrophils % (Manual) 83 H (42-75) % Lymphocytes % (Manual) 1 L (20-51) % Neutrophils # (Manual) 8.1 H (1.3-6.0) K/mm3 Lymphocytes # (Manual) 0.1 L (1.5-3.5) k/mm3 Atypic/Reactive Lymphs 4 H (0-2) % PT 12.3 H (9.1-10.7) Seconds INR (Anticoag Therapy) 1.19 H (0.92-1.08) INR Est GFR (Non-Af Amer) 39 L D (60-130) mL/min Random Glucose 134 H (70-110) mg/dL Laboratory Results WBC 9.8 K/mm3 (4.0-10.5) 08/11/20 16:28 RBC 4.29 M/mm3 (4.2-5.4) 08/11/20 16:28 Hgb 13.4 gm/dL (12.5-16.0) 08/11/20 16:28 Hct 40.7 % (37.0-47.0) 08/11/20 16:28 MCV 94.9 fl (78-100) 08/11/20 16:28 MCH 31.2 pg (27-31) H 08/11/20 16:28 MCHC 32.9 g/dl (32-36) 08/11/20 16:28 RDW 12.8 % (11.5-14.0) 08/11/20 16:28 Plt Count 186 K/mm3 (150-450) 08/11/20 16:28 MPV 9.8 fl (8-12.5) 08/11/20 16:28 Neutrophils % (Manual) 83 % (42-75) H 08/11/20 16:28 Band Neuts % (Manual) 2 % (0-2.0) 08/11/20 16:28 Lymphocytes % (Manual) 1 % (20-51) L 08/11/20 16:28 Monocytes % (Manual) 7 % (0-9) 08/11/20 16:28 Eosinophils % (Manual) 2 % (0-3) 08/11/20 16:28 Basophils % (Manual) 1 % (0-1) 08/11/20 16:28 Neutrophils # (Manual) 8.1 K/mm3 (1.3-6.0) H 08/11/20 16:28 Lymphocytes # (Manual) 0.1 k/mm3 (1.5-3.5) L 08/11/20 16:28 Monocytes # (Manual) 0.7 k/mm3 (0.0-1.0) 08/11/20 16:28 Eosinophils # (Manual) 0.2 k/mm3 (0.0-0.7) 08/11/20 16:28 Basophils # (Manual) 0.1 k/mm3 (0.0-0.1) 08/11/20 16:28 Atypic/Reactive Lymphs 4 % (0-2) H 08/11/20 16:28 Platelet Estimate Normal (NORMAL) 08/11/20 16:28 RBC Morphology Normal (NORMAL) 08/11/20 16:28 PT 12.3 Seconds (9.1-10.7) H 08/11/20 16:28 INR (Anticoag Therapy) 1.19 INR (0.92-1.08) H 08/11/20 16:28 PTT (Emmons) 27.1 Seconds (24-32) 08/11/20 16:28 Sodium 136 mmol/L (132-142) 08/11/20 16:28 Plasma Sodium 137 mmol/L (130-142) 08/11/20 16:28 Potassium 3.6 mmol/L (3.4-4.6) D 08/11/20 16:28 Chloride 101 mmol/L (97-106) 08/11/20 16:28 Carbon Dioxide 29.6 mmol/L (24-32.6) 08/11/20 16:28 Anion Gap 9.0 mmol/L (6.8-13.8) 08/11/20 16:28 BUN 18 mg/dL (3-23) 08/11/20 16:28 Creatinine 1.37 mg/dL (0.4-1.4) D 08/11/20 16:28 Est GFR (Non-Af Amer) 39 mL/min (60-130) L D 08/11/20 16:28 BUN/Creatinine Ratio 13.1 (9.0-21.6) 08/11/20 16:28 Random Glucose 134 mg/dL (70-110) H 08/11/20 16:28 Calcium 8.4 mg/dL (7.9-10.9) 08/11/20 16:28 Calcium Adj for Albumin 8.6 mg/dL (8.4-10.2) 08/11/20 16:28 Total Bilirubin 0.6 mg/dL (0.0-1.1) 08/11/20 16:28 AST 25 U/L (0-48) 08/11/20 16:28 ALT 35 U/L (19-67) 08/11/20 16:28 Alkaline Phosphatase 111 U/L (50-170) 08/11/20 16:28 Creatine Kinase 50 U/L (0-259) 08/11/20 16:28 Total Protein 6.5 gm/dL (6.2-8.2) 08/11/20 16:28 Albumin 3.4 gm/dl (3.4-5.0) 08/11/20 16:28 SARS-CoV-2 (PCR) Not detected (NotDetected) 08/11/20 18:50 Assessment/Plan - Narrative Narrative: Scarlet is an 80 year old female whos admiitted for a pelvic fracture after a fall yesterday. We will get a PT/OT evaluation. she is likely to have home health care or be discharged to a [place] temporarily before going home for more PT/OT. In the meantime we will hold her anticogulation/antiplatelet for now as she keeps on oozing/bleeding from her left facial trauma. She knows of the increased risk for blood clot/stroke/cardiac risks while off her blood thinners. - Assessment/Plan (1) Fall Problem: Acute Qualifiers: Encounter type: initial encounter Qualified Code(s): W19.XXXA - Unspecified fall, initial encounter (2) Pelvic fracture Problem: Acute Qualifiers: Encounter type: initial encounter Pelvic bone location: multiple parts Fracture type: closed Fracture alignment: with stable disruption of pelvic ring Qualified Code(s): S32.810A - Multiple fractures of pelvis with stable disruption of pelvic ring, initial encounter for closed fracture (3) Facial trauma Problem: Acute Qualifiers: Encounter type: initial encounter Qualified Code(s): S09.93XA - Unspecified injury of face, initial encounter (4) Atrial fibrillation Problem: Acute (5) Hypothyroidism, unspecified Problem: Acute (6) HTN (hypertension) Problem: Acute
[2020-08-12] MEDS: ISOSORBIDE MONONITRATE 60 MG TAB.SR.24H PO SCH (08:52)
[2020-08-12] MEDS: AMIODARONE HCL 200 MG TABLET PO SCH (08:52)
[2020-08-12] MEDS: CALCIUM CARBONATE/VITAMIN D3 1 TAB TABLET PO SCH ×2 (08:52→20:06)
[2020-08-12] MEDS: METOPROLOL SUCCINATE 50 MG TABLET.SA PO SCH (08:53)
[2020-08-12] MEDS: LISINOPRIL 20 MG TABLET PO SCH ×2 (08:53→15:21)
[2020-08-12] MEDS: HYDROCHLOROTHIAZIDE 12.5 MG CAPSULE PO SCH (08:53)
[2020-08-12] MEDS: MULTIVITAMINS 1 CAP CAPSULE PO SCH (08:53)
[2020-08-12] MEDS ORDERED: ISOSORBIDE MONONITRATE 30 MG TAB.SR.24H PO SCH (09:00)
[2020-08-12] MEDS ORDERED: METOPROLOL SUCCINATE 100 MG TABLET.SA PO SCH (09:00)
[2020-08-12] MEDS ORDERED: amLODIPine BESYLATE 5 MG TABLET PO ONE (19:56)
[2020-08-13] MEDS: HYDROcodone/ACETAMINOPHEN 1 EACH TABLET PO PRN ×2 (00:54→06:58)
[2020-08-13 06:59] LABS: Anion Gap 10.4 mmol/L (6.8-13.8); BUN/Creatinine Ratio 20.2 (9.0-21.6); Calcium * 8.9 mg/dL (7.9-10.9); Estimated Creat Clear 35.6; Hematocrit 37.8 % (37.0-47.0); Hemoglobin 12.2 gm/dL (12.5-16.0); Mean Cell Volume 95.5 fl (78-100); Mean Corpuscular Hemoglobin 30.8 pg (27-31); Mean Corpuscular Hgb Conc 32.3 g/dl (32-36); Mean Platelet Volume 10.1 fl (8-12.5); Neutrophil # 8.6 K/mm3 (1.3-6.0); Neutrophil % 76.7 % (42-75.0); Platelet Count 163 K/mm3 (150-450); Potassium 3.4 mmol/L (3.4-4.6); Red Blood Count 3.96 M/mm3 (4.2-5.4); Red Cell Distribution Width 12.7 % (11.5-14.0); White Blood Count 11.2 K/mm3 (4.0-10.5)
--- NOTE | 2020-08-13 08:15 | PN ---
Love Note - Interim Date: 08/13/20 Time: 08:13 Narrative: 08/13/20 08:13 Patient says she had a nightmare. When she opened her eyes she thought she was in her home and stood up to go the bathroom and felt hip pain and was not able to do so. She is preferring to go home with HH and home PT and does not want NH. Awaiting PT evaluation.
[2020-08-13] MEDS: CALCIUM CARBONATE/VITAMIN D3 1 TAB TABLET PO SCH (08:17)
[2020-08-13] MEDS: MULTIVITAMINS 1 CAP CAPSULE PO SCH (08:17)
[2020-08-13] MEDS: AMIODARONE HCL 200 MG TABLET PO SCH (08:18)
[2020-08-13] MEDS: HYDROCHLOROTHIAZIDE 12.5 MG CAPSULE PO SCH (08:18)
[2020-08-13] MEDS: ISOSORBIDE MONONITRATE 60 MG TAB.SR.24H PO SCH (08:18)
[2020-08-13] MEDS: METOPROLOL SUCCINATE 50 MG TABLET.SA PO SCH (08:18)
[2020-08-13] MEDS ORDERED: LISINOPRIL 40 MG TABLET PO SCH (09:00)
--- NOTE | 2020-08-13 10:14 | DS ---
(1) Fall Problem: Acute Qualifiers: Encounter type: initial encounter Qualified Code(s): W19.XXXA - Unspecified fall, initial encounter (2) Pelvic fracture Diagnosis(s): left superior and inferior pubic rami; anterior column acetabulum, left Problem: Acute Qualifiers: Encounter type: initial encounter Pelvic bone location: multiple parts Fracture type: closed Fracture alignment: with stable disruption of pelvic ring Qualified Code(s): S32.810A - Multiple fractures of pelvis with stable disruption of pelvic ring, initial encounter for closed fracture (3) Facial trauma Diagnosis(s): contusion hematoma Problem: Acute Qualifiers: Encounter type: initial encounter Qualified Code(s): S09.93XA - Unspecified injury of face, initial encounter (4) Atrial fibrillation Problem: Chronic (5) Hypothyroidism, unspecified Problem: Chronic (6) HTN (hypertension) Problem: Chronic Qualifiers: Hypertension type: essential hypertension Qualified Code(s): I10 - Essential (primary) hypertension Date of Discharge:: 08/13/20 Hospital Course: Scarlet Law is an 80 year old female, patient of , with PMH of CAD s/p POBA of LCx, chronic atrial fibrillation s/p cardioversion, hypothyroidism, hypertension, Congestive heart failure who was admitted on 08/11/2020 due to a fall and left facial swelling. She was cleaning up her garden when the the weed remover got stuck to a dandelion and while trying to pull it fell on her left hip and hit the left side of her face against a operator engineer. She was brought to the ED via POV and hip and pelvic xray showed no acute pelvic/hip abnormality. Her lower extremity CTS however showed- Comminuted minimally displaced fracture of the anterior column of the left acetabulum and the superior and mid inferior pubic rami, as described. Her head CTS showed- NO ACUTE INTRACRANIAL ABNORMALITY OR SKULL FRACTURE. MODERATE CHRONIC SENESCENT CHANGE. 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 Her cervical CTS showed- MODERATE CERVICAL SPONDYLOSIS AND PROBABLE POSITIONAL STRAIGHTENING OF CERVICAL CURVATURE. NO ACUTE TRAUMATIC ABNORMALITIES. Her who is over 80 years old was on the other side of the house and could not hear her and so she was laying down there for 1/2 hour. She was then admitted for pain control and PT/OT evaluation and treatment. She is able to count my fingers grossly . Dr. Garcia was consulted by ED about her eye and he felt she did not need any emergent care and was told to get in touch with his office for follow up appontment today. She was continously bleeding from her left facial trauma and so her Eliquis and ASA were put on hold. We did discuss the increased risk for clot formation since she is off her pills. Today she says that she still has some oozing but not bleeding anymore. She will be seen by PT and Ortho this morning. She is going home today pending these consults with home health care. Scarlet is homebound due to her pelvic fractures and pain with ambulation. The need for [place] [facility] care is for monitoring of her vital signs, management of medications, monitoring of her left facial bleeding and wound care and the need for for physical therapy is for strengthening of her lower extremities , improvement of her balance and ambulation . She will also need bath aids. the need for home health care services is directly related to the time spent face to face with the person. Procedures Performed: none Results and Findings: Lab Pending Results 08/11/20 16:28: WBC 9.8, RBC 4.29, Hgb 13.4, Hct 40.7, MCV 94.9, MCH 31.2 H, MCHC 32.9, RDW 12.8, Plt Count 186, MPV 9.8, Neutrophils % (Manual) 83 H, Band Neuts % (Manual) 2, Lymphocytes % (Manual) 1 L, Monocytes % (Manual) 7, Eosinophils % (Manual) 2, Basophils % (Manual) 1, Neutrophils # (Manual) 8.1 H, Lymphocytes # (Manual) 0.1 L, Monocytes # (Manual) 0.7, Eosinophils # (Manual) 0.2, Basophils # (Manual) 0.1, Atypic/Reactive Lymphs 4 H, Platelet Estimate Normal, RBC Morphology Normal 08/11/20 16:28: PT 12.3 H, INR (Anticoag Therapy) 1.19 H, PTT ([place]) 27.1 08/11/20 16:28: Sodium 136, Plasma Sodium 137, Potassium 3.6 D, Chloride 101, Carbon Dioxide 29.6, Anion Gap 9.0, BUN 18, Creatinine 1.37 D, Est GFR (Non-Af Amer) 39 L D, BUN/Creatinine Ratio 13.1, Random Glucose 134 H, Calcium 8.4, Calcium Adj for Albumin 8.6, Total Bilirubin 0.6, AST 25, ALT 35, Alkaline Phosphatase 111, Creatine Kinase 50, Total Protein 6.5, Albumin 3.4 08/11/20 18:50: SARS-CoV-2 (PCR) Not detected 08/13/20 06:28: WBC 11.2 H, RBC 3.96 L, Hgb 12.2 L, Hct 37.8, MCV 95.5, MCH 30.8, MCHC 32.3, RDW 12.7, Plt Count 163, MPV 10.1, Immature Gran % (Auto) 0.60 H, Immature Gran # (Auto) 0.07 H, Neutrophils % 76.7 H, Lymphocytes % 9.4 L, Monocytes % 11.1 H, Eosinophils % 1.8, Basophils % 0.4, Nucleated RBC % 0.0, Neutrophils # 8.6 H, Lymphocytes # 1.05 L, Monocytes # 1.2 H, Eosinophils # 0.2, Absolute Basophils 0.0 08/13/20 06:28: Sodium 136, Plasma Sodium 136, Potassium 3.4, Chloride 98, Carbon Dioxide 31.0, Anion Gap 10.4, BUN 18, Creatinine 0.89, Est GFR (Non-Af Amer) 65 D, BUN/Creatinine Ratio 20.2, Random Glucose 110, Calcium 8.9 Discharge Location: Home Disposition: Home Health Service Home Health Agency: Other - [facility] in [place] Condition: Stable Face to Face Encounter completed per [facility] Guidelines: Yes Discharge Activity: Weight bearing - to tolerance with walker Discharge Diet: Low salt Referrals: La Nena Mantilla MD [Primary Care Provider] - Additional Patient Instructions (free text): [facility], Home Health in [place], [place]. Please call and fax discharge information to them, fax # [phone]. Please make an appointment with Dr. Garcia for her Left facial Trauma with periorbital Contusion/Hematoma. Follow up with PCP in 1 week. Prescriptions (Any new or edited meds): Lisinopril 20 mg PO DAILY #30 tab Transmission Status: Received by [facility] HYDROcodone/ACETAMINOPHEN [[place] 5-325] 1 ea PO Q6H PRN #30 tab PRN Reason: Moderate Pain (Pain Scale 4-6) Transmission Status: Received by [facility] Ondansetron [Zofran Odt] 4 mg PO Q6H PRN #20 tab.rapdis PRN Reason: Nausea And Vomiting Transmission Status: Received by [facility] Complete Home Medications List: Complete Home Medication List: Aspirin [Aspirin Enteric Coated] 81 mg PO DAILY 07/22/13 Multivitamins [Multivitamin Kacie] 1 cap PO DAILY 07/22/13 Nitroglycerin [Nitrostat] 0.4 mg SL PRN PRN 07/22/13 [place]-3 Fatty Acids/Fish Oil [Fish Oil 1,000 mg Softgel] 1 ea PO DAILY 07/22/13 Lisinopril/Hydrochlorothiazide [Lisinopril-Hctz 20-12.5 mg Tab] 1 ea PO DAILY 07/16/18 Acetaminophen [Tylenol] 1,000 mg PO Q6H PRN tab 07/17/18 Calcium Carbonate/Vitamin D3 [Calcium 500-Vit D3 200 Tablet] 1 ea PO BID 08/09/18 furosemide 20 mg tablet 20 mg PO DAILY PRN #30 tab 09/10/18 metoprolol succinate 100 mg tablet,extended release 24 hr 150 mg PO DAILY #45 tab.er.24h 10/26/18 amiodarone 200 mg tablet 200 mg PO DAILY 01/19/19 apixaban 5 mg tablet 5 mg PO BID #180 tab 01/26/19 isosorbide mononitrate 30 mg tablet,extended release 24 hr 60 mg PO DAILY #180 tab 08/22/19 atorvastatin 20 mg tablet See Rx Instructions .ROUTE .COMPLEX #90 unspecified 07/02/20 HYDROcodone/ACETAMINOPHEN [[place] 5-325] 1 ea PO Q6H PRN #30 tab 08/13/20 Lisinopril 20 mg PO DAILY #30 tab 08/13/20 Ondansetron [Zofran Odt] 4 mg PO Q6H PRN #20 tab.rapdis 08/13/20 Forms: Patient Portal Registration
[2020-08-13] MEDS ORDERED: ONDANSETRON 4 MG TAB.RAPDIS PO PRN (10:25)
[2020-08-13 11:21] LABS: Urine Bilirubin Negative (NEGATIVE); Urine Ketone Negative (NEGATIVE); Urine Nitrite Negative (NEGATIVE); Urine Protein 30 mg/dL (NEGATIVE); Urine Specific Gravity 1.025 SP.GR. (1.005-1.010); Urine Urobilinogen Normal (NORMAL); Urine pH 6.5 pH (5.0-7.0)
[2020-08-13 11:52] LABS: Urine Appearance Cloudy (CLEAR); Urine Bacteria 1+; Urine Blood 5 /ul (NEGATIVE); Urine Color Yellow; Urine RBC 0-5 /hpf (0-5); Urine WBC 25-50 /hpf (0-5)
[2020-08-13 14:55] VITALS: BP 170/71
--- NOTE | 2020-08-13 16:44 | CONS ---
- Reason for consultation (1) Pelvic fracture Date of Service: 08/13/20 HPI - General Date of Service: 08/13/20 Narrative: 80-year-old female presenting to the ER status post a fall with significant facial trauma as well as left-sided hip pain. She was then admitted due to inability to weight-bear on that left lower extremity status post fall. Patient has been seen by physical therapy, she will stand with a walker. She notes her pain is significantly worse when she is weightbearing and better with rest. However she does note she is able to tolerate it. She is having mild nausea as she is been treated with Zofran over the weekend while being in the hospital. She otherwise notes she has had no other acute significant complaints. She denies any acute concerns at this time. Patient denies any other significant radiating or modifying factors. Source: patient Exam Limitations: no limitations - History of Present Illness Allergies/Adverse Reactions: Allergies methylprednisolone Allergy (Intermediate, Verified 08/11/20 17:34) SWELLED UP ALL OVER, GAINED 20 LBS SUDDENLY Sulfa (Sulfonamide Antibiotics) Adverse Reaction (Mild, Verified 08/11/20 17:34) RASH Home Medications: Home Medications Medication Instructions Recorded Last Taken Aspirin [Aspirin Enteric Coated] 81 mg PO DAILY 07/22/13 08/08/18 08:00 Multivitamins [Multivitamin Kacie] 1 cap PO DAILY 07/22/13 08/08/18 08:00 Nitroglycerin [Nitrostat] 0.4 mg SL PRN PRN 07/22/13 Unknown [place]-3 Fatty Acids/Fish Oil [Fish 1 ea PO DAILY 07/22/13 08/08/18 08:00 Oil 1,000 mg Softgel] Lisinopril/Hydrochlorothiazide 1 ea PO DAILY 07/16/18 08/08/18 08:00 [Lisinopril-Hctz 20-12.5 mg Tab] Acetaminophen [Tylenol] 1,000 mg PO Q6H PRN tab 07/17/18 Unknown Calcium Carbonate/Vitamin D3 1 ea PO BID 08/09/18 08/08/18 16:00 [Calcium 500-Vit D3 200 Tablet] furosemide 20 mg tablet 20 mg PO DAILY PRN #30 tab 09/10/18 Unknown metoprolol succinate 100 mg 150 mg PO DAILY #45 tab.er.24h 06/18/19 Unknown tablet,extended release 24 hr amiodarone 200 mg tablet 200 mg PO DAILY 01/19/19 Unknown apixaban 5 mg tablet 5 mg PO BID #180 tab 01/26/19 Unknown isosorbide mononitrate 30 mg 60 mg PO DAILY #180 tab 08/22/19 Unknown tablet,extended release 24 hr atorvastatin 20 mg tablet See Rx Instructions .ROUTE 07/02/20 Unknown .COMPLEX #90 unspecified HYDROcodone/ACETAMINOPHEN [[place] 1 ea PO Q6H PRN #30 tab 08/13/20 Unknown 5-325] Lisinopril 20 mg PO DAILY #30 tab 08/13/20 Unknown Ondansetron [Zofran Odt] 4 mg PO Q6H PRN #20 tab.rapdis 08/13/20 Unknown Procedures Closed [endoscopic] biopsy of large intestine (01/07/05) Insertion of intraocular lens prosthesis at time of cataract extraction, one- stage (09/05/13) LAPAROSCOP APPENDECTOMY (06/15/09) LAPAROSCOP LYSIS-PERITONEAL ADHES (06/15/09) Phacoemulsification and aspiration of cataract (09/05/13) Physical Examination - Exam Vital Signs: Vital Signs - Last Taken Temp 36.4 C 08/13/20 14:49 Pulse 64 08/13/20 14:49 Resp 12 08/13/20 14:49 BP 170/71 H 08/13/20 14:49 Pulse Ox 95 08/13/20 14:49 O2 Oxygen Delivery Method Room Air Constitutional: Present: Alert, Cooperative, No distress Respiratory: Present: no respiratory distress Extremity: Present: other - Left lower extremity--> tenderness about the pelvic region, 4+ extension and flexion at the knee, sensation tact light touch, capillary refill brisk, no obvious wounds or deformities, diffuse mild limited range of motion of the hip secondary to pain and fracture Appearance: Present: appropriate appearance Eye contact: Present: cooperative, good eye contact Thoughts: Present: normal thought pattern - Results and Findings: Lab/Microbiology results last 24 hrs: Abnormal/Pending Laboratory Last 24 HRS 08/13/20 08/13/20 11:07 06:28 WBC 11.2 H RBC 3.96 L Hgb 12.2 L Immature Gran % (Auto) 0.60 H Immature Gran # (Auto) 0.07 H Neutrophils % 76.7 H Lymphocytes % 9.4 L Monocytes % 11.1 H Neutrophils # 8.6 H Lymphocytes # 1.05 L Monocytes # 1.2 H Urine Protein 30 H Urine Blood 5 H Ur Leukocyte Esterase 75 H Urine WBC 25-50 H Ur Epithelial Cells 5-10 H Urine Bacteria 1+ H - Assessments/Findings (1) Pelvic fracture Problem: Acute Qualifiers: Encounter type: initial encounter Pelvic bone location: multiple parts Fracture type: closed Fracture alignment: with stable disruption of pelvic ring Qualified Code(s): S32.810A - Multiple fractures of pelvis with stable disruption of pelvic ring, initial encounter for closed fracture Plan - Plan Plan: -80-year-old status post a fall with a left comminuted minimally displaced fracture of the anterior column of the left acetabulum and superior and mid inferior pubic rami fractures -Based on patient's fracture pattern appears to be stable pelvic ring injury she can continue with protected weightbearing with a walker. Based on patient's current physical condition she will need a walker to aid her in her activities of daily living. Patient expressed that she is willing to use a walker. She notes her home is accessible and has her to help her with ADLs. Patient's overall condition will be improved in her ability to perform ADLs with a walker at this time. Patient will most likely be able to wean from this walker in the future, we will continue to monitor her overall recovery to determine further care. Based on patient's current limitations with this fracture she would require a walker for a period of time while healing. -Protected weightbearing as tolerated with a walker -Follow-up in 1 to 2 weeks with repeat films in office -Chronic medical conditions per medicine team -Pain control p.o. per medicine team -Patient is on a blood thinner, no prophylaxis for DVT needed -Home health and physical therapy would be warranted for continued care due to patient's overall limitations at this time -Disposition we discharged home with home health and physical therapy, follow-up with orthopedic outpatient clinic for repeat films and monitoring
== END 2020-08-13 15:28 | disposition home health service (06) ==
LOC: ER 16:08 → MS 16:08
PROVIDERS: ADMIT Internal Medicine; ATTEND Internal Medicine
DX: S01.412A Laceration without foreign body of left cheek and temporomandibular area, initial encounter; Z87.891 Personal history of nicotine dependence; W19.XXXA Unspecified fall, initial encounter; I10 Essential (primary) hypertension; M47.812 Spondylosis without myelopathy or radiculopathy, cervical region; S32.512A Fracture of superior rim of left pubis, initial encounter for closed fracture; S32.432A Displaced fracture of anterior column [iliopubic] of left acetabulum, initial encounter for closed fracture; I48.20 Chronic atrial fibrillation, unspecified; E03.9 Hypothyroidism, unspecified